=== PATIENT | male | born 1940 | race Caucasian/White ===

== ENCOUNTER 2024-02-16 13:44 | Emergency (ER) | payer MEDICARE, SELFPAY ==
[2024-02-16] VITALS (9 sets, daily range): BP systolic 124–158; BP diastolic 68–92; PULSE 59–86; RESP 16–20; TEMP 36.7–36.8; O2SAT 94–97; BMI 28.3
--- NOTE | 2024-02-16 13:45 | PC.NURSE ---
DR PICKETT AT BEDSIDE
--- NOTE | 2024-02-16 13:59 | ED_ITS ---
Discharge Plan Disposition Patient Disposition: Home, Self-Care Referrals Follow up/Referrals: Jeff Singh DO [Staff Physician] - See instructions David Salas MD [Referring] - See instructions Activity Restrictions/Add. Instructions Additional Instructions/Restrictions: At this time it was felt you are safe to be discharged home. If new or worsening symptoms please do not hesitate to return the emergency department. For pain please take Tylenol and ibuprofen as needed, please call schedule appoint with Dr. Singh as soon as you are able. Clinical Impressions Clinical Impression: Closed fracture distal radius and ulna Print Language Print Language: Beninese Discharge ED Provider: Killian Singh General Adult HPI <Megan Bay DO - Last Filed: 02/16/24 15:19> General Chief complaint: Fall Stated complaint: AO 9/2 Pain in Right wrist-fall Time Seen by Provider: 02/16/24 13:45 Mode of Arrival: Wheelchair Source of Information: Patient and Relative Limitations: No Limitations Description of Symptoms (Recalled from ER Triage Doc. by RN): pt fell at home this morning after getting tripped up, pt sister states he is very clumsy and falls a lot. pt complains of right shoulder arm and wrist pain after losing balance and falling into door frame. pt is alox4 however hard of hearing History of Present Illness HPI narrative: This patient is an 83-year-old male with a history of hypertension, CHF, CAD status post stenting presenting to the emergency department for evaluation with concern for mechanical ground-level fall. Patient's sister states that he walks with a walker on his own but is very clumsy and falls a lot. Today, he reports that he was trying to get into his closet when he slipped and fell. He states he was feeling fine prior to the fall with no dizziness or other concerns. He did not hit his head or lose consciousness. He does complain of pain in his entire right upper extremity. He states it is worse in his right shoulder and wrist. His sister notes that he recently got out of a cast for a right wrist fracture. He does not have any chest pain, back pain, numbness, tingling, abdominal pain, or other concerns. According to medication list, he takes aspirin but no blood thinners Related Data Allergies Allergy/AdvReac Type Severity Reaction Status Date / Time No Known Allergies Allergy Verified 02/16/24 14:09 PFS <Megan Bay DO - Last Filed: 02/16/24 15:19> [facility] Disclaimer: The information contained in this section may have been updated after the patient was seen, as this information can be updated by other users. Social History (Updated 02/16/24 @ 15:19 by Megan Bay DO) Smoking Status: Never smoker alcohol intake: never current occupational status: retired Travel in the last 8 weeks: None <Megan Bay DO - Last Filed: 02/16/24 15:19> ROS Obtained: Yes All systems reviewed & no additional complaints except as documented Physical Exam <Megan Bay DO - Last Filed: 02/16/24 15:19> General General appearance: alert and in no apparent distress Head Head exam: atraumatic and normocephalic Eye Eye exam: Present normal appearance, PERRL and EOMI ENT ENT exam: Present normal exam, normal oropharynx, mucous membranes moist and normal external ear exam Neck Neck exam: Present normal inspection, full ROM and trachea midline; Absent tenderness Chest Chest inspection: Present normal inspection and symmetric chest wall rise; Absent tenderness Respiratory Respiratory exam: Present normal lung sounds bilaterally; Absent respiratory distress, wheezes, stridor or accessory muscle use Cardiovascular Cardiovascular exam: Present regular rate and normal rhythm Abdominal Exam Abdominal exam: Present soft; Absent distention, tenderness or guarding Extremities Exam Extremities exam: Present full ROM, tenderness (TTP of R prox humerus and R wrist, all compartments soft, neurovascularly intact. No open wounds) and normal capillary refill; Absent edema Back Exam Back exam: Present normal inspection and full ROM; Absent tenderness Neurological Exam Neurological exam: Present alert, oriented X3 and CN II-XII intact; Absent motor sensory deficit Psychiatric Psychiatric exam: Present normal affect and normal mood Skin Skin exam: Present warm and dry Medical Decision Making <Megan Bay DO - Last Filed: 02/16/24 15:19> Medical Records Medical records reviewed: Yes I reviewed the patient's medical records. Shant Inquiry Pt receiving controlled substance: No Vital Signs: 02/16/24 13:44 02/16/24 14:00 02/16/24 14:31 Temperature 98.3 F Temperature Source Oral Pulse Rate 60 59 L Pulse Rate [Right Radial] 62 Respiratory Rate 20 16 Blood Pressure 129/75 131/75 Blood Pressure [Right Arm] 124/77 Blood Pressure Mean 93 Blood Pressure Mean [Right Arm] 92 02 Sat by Pulse Oximetry 96 95 95 Oxygen Delivery Method Room Air Room Air 02/16/24 15:31 02/16/24 16:00 02/16/24 16:31 Temperature Temperature Source Pulse Rate 59 L 59 L 61 Pulse Rate [Right Radial] Respiratory Rate 18 Blood Pressure 141/71 H 148/68 H 158/91 H Blood Pressure [Right Arm] Blood Pressure Mean 113 Blood Pressure Mean [Right Arm] 02 Sat by Pulse Oximetry 94 L 96 97 Oxygen Delivery Method Room Air Room Air 02/16/24 17:01 02/16/24 17:30 02/16/24 18:25 Temperature 98.0 F Temperature Source Pulse Rate 62 60 86 Pulse Rate [Right Radial] Respiratory Rate 18 20 20 Blood Pressure 153/76 H 157/79 H 142/92 H Blood Pressure [Right Arm] Blood Pressure Mean 101 105 Blood Pressure Mean [Right Arm] 02 Sat by Pulse Oximetry 95 96 Oxygen Delivery Method Room Air Lab Data Lab results reviewed: Yes I reviewed the patient's lab results. Lab Results 02/16/24 16:11: WBC 7.1, RBC 3.21 L, Hgb 11.1 L, Hct 34.7 L, MCV 108.0 H, MCH 34.6 H, MCHC 32.0, RDW 15.5, Plt Count 269, MPV 9.4, Neut % (Auto) 78.9, Lymph % (Auto) 14.4, [place] % (Auto) 4.3, Eos % (Auto) 2.2, Baso % (Auto) 0.2, Neut # (Auto) 5.6, Lymph # (Auto) 1.0, [place] # (Auto) 0.3, Eos # (Auto) 0.2, Baso # (Auto) 0.0, Sodium 135 L, Potassium 4.5, Chloride 100, Carbon Dioxide 30, Anion Gap 9.5, BUN 12, Creatinine 1.20, Estimated Creat Clear 46, Estimated GFR 58 L, Est GFR ( Amer) 70, Glucose 85, Calcium 8.3 L 02/16/24 16:11 02/16/24 16:11 Orders (Tests/Meds): ED MEDICATIONS Discontinued Medications Generic Name Dose Route Start Last Admin Trade Name Freq PRN Reason Stop Dose Admin Fentanyl Citrate 40 mcg 02/16/24 17:47 02/16/24 17:52 Fentanyl 100mcg/2ml Vial IV 02/16/24 17:48 40 mcg ONCE ONE Administration ORDERS Category Date Time Status CT cervical spine wo con Stat Cat Scan 02/16/24 14:[address] head/brain wo con Stat Cat Scan 02/16/24 14:03 Completed Chest XR -- portable [XR chest portable] Stat Exams 02/16/24 14:03 Completed Elbow XR right minimum 3 views [XR elbow RT min 3V] Exams 02/16/24 14:03 Completed Stat Forearm XR right 2 views [XR forearm RT 2V] Stat Exams 02/16/24 14:03 Completed Hand XR right minimum 3 views [XR hand RT min 3V] Stat Exams 02/16/24 14:03 Completed Humerus XR right [XR humerus RT] Stat Exams 02/16/24 14:03 Completed POCUS Point of Care (ER Only) Stat Exams 02/16/24 16:52 Completed Pelvis XR 1-2 views [XR pelvis 1-2V] Stat Exams 02/16/24 14:03 Completed Shoulder XR right miminum 2 views [XR shoulder RT min Exams 02/16/24 14:03 Completed 2V] Stat Wrist XR right 2 views [XR wrist RT 2V] Stat Exams 02/16/24 14:03 Completed Wrist XR right minimum 3 views [XR wrist RT min 3V] Exams 02/16/24 17:47 Completed Stat BMP [Basic Metabolic Panel] Stat Lab 02/16/24 16:11 Completed CBC w/Auto Diff [Complete Blood Count Auto Diff] Stat Lab 02/16/24 16:11 Completed Medical Decision Narrative: In summary, this patient is a 83-year-old male presenting to the Emergency Department for evaluation of right upper extremity pain after a mechanical ground-level fall. Differential diagnoses considered include but are not limited to head trauma, C-spine trauma, right upper extremity fracture, neurovascular injury. Ruling out the most morbid conditions drove assessment. It should be noted patient's history includes CAD status post stenting on aspirin, CHF, hypertension which may or may not be at goal therapy. This complicates all aspects of care by increasing patient's risk for morbidity. On exam, the patient is lying in bed in no acute distress. He is alert and conversational and at his neurologic baseline. He is well-appearing. He has tenderness palpation of his right proximal humerus and right wrist. Otherwise, he is neurovascularly intact. Will obtain CT head and C-spine given his age as well as x-rays of the chest, pelvis, and injured right upper extremity. He declines need for pain medication at this time. Patient care was signed out to the oncoming provider, Dr. Singh, pending imaging and disposition <Killian Singh MD - Last Filed: 02/16/24 18:35> Vital Signs: 02/16/24 13:44 02/16/24 14:00 02/16/24 14:31 Temperature 98.3 F Temperature Source Oral Pulse Rate 60 59 L Pulse Rate [Right Radial] 62 Respiratory Rate 20 16 Blood Pressure 129/75 131/75 Blood Pressure [Right Arm] 124/77 Blood Pressure Mean 93 Blood Pressure Mean [Right Arm] 92 02 Sat by Pulse Oximetry 96 95 95 Oxygen Delivery Method Room Air Room Air 02/16/24 15:31 02/16/24 16:00 02/16/24 16:31 Temperature Temperature Source Pulse Rate 59 L 59 L 61 Pulse Rate [Right Radial] Respiratory Rate 18 Blood Pressure 141/71 H 148/68 H 158/91 H Blood Pressure [Right Arm] Blood Pressure Mean 113 Blood Pressure Mean [Right Arm] 02 Sat by Pulse Oximetry 94 L 96 97 Oxygen Delivery Method Room Air Room Air 02/16/24 17:01 02/16/24 17:30 02/16/24 18:25 Temperature 98.0 F Temperature Source Pulse Rate 62 60 86 Pulse Rate [Right Radial] Respiratory Rate 18 20 20 Blood Pressure 153/76 H 157/79 H 142/92 H Blood Pressure [Right Arm] Blood Pressure Mean 101 105 Blood Pressure Mean [Right Arm] 02 Sat by Pulse Oximetry 95 96 Oxygen Delivery Method Room Air Lab Data Lab Results 02/16/24 16:11: WBC 7.1, RBC 3.21 L, Hgb 11.1 L, Hct 34.7 L, MCV 108.0 H, MCH 34.6 H, MCHC 32.0, RDW 15.5, Plt Count 269, MPV 9.4, Neut % (Auto) 78.9, Lymph % (Auto) 14.4, [place] % (Auto) 4.3, Eos % (Auto) 2.2, Baso % (Auto) 0.2, Neut # (Auto) 5.6, Lymph # (Auto) 1.0, [place] # (Auto) 0.3, Eos # (Auto) 0.2, Baso # (Auto) 0.0, Sodium 135 L, Potassium 4.5, Chloride 100, Carbon Dioxide 30, Anion Gap 9.5, BUN 12, Creatinine 1.20, Estimated Creat Clear 46, Estimated GFR 58 L, Est GFR ( Amer) 70, Glucose 85, Calcium 8.3 L Orders (Tests/Meds): ED MEDICATIONS Discontinued Medications Generic Name Dose Route Start Last Admin Trade Name Freq PRN Reason Stop Dose Admin Fentanyl Citrate 40 mcg 02/16/24 17:47 02/16/24 17:52 Fentanyl 100mcg/2ml Vial IV 02/16/24 17:48 40 mcg ONCE ONE Administration ORDERS Category Date Time Status CT cervical spine wo con Stat Cat Scan 02/16/24 14:[address] head/brain wo con Stat Cat Scan 02/16/24 14:03 Completed Chest XR -- portable [XR chest portable] Stat Exams 02/16/24 14:03 Completed Elbow XR right minimum 3 views [XR elbow RT min 3V] Exams 02/16/24 14:03 Completed Stat Forearm XR right 2 views [XR forearm RT 2V] Stat Exams 02/16/24 14:03 Completed Hand XR right minimum 3 views [XR hand RT min 3V] Stat Exams 02/16/24 14:03 Completed Humerus XR right [XR humerus RT] Stat Exams 02/16/24 14:03 Completed POCUS Point of Care (ER Only) Stat Exams 02/16/24 16:52 Completed Pelvis XR 1-2 views [XR pelvis 1-2V] Stat Exams 02/16/24 14:03 Completed Shoulder XR right miminum 2 views [XR shoulder RT min Exams 02/16/24 14:03 Completed 2V] Stat Wrist XR right 2 views [XR wrist RT 2V] Stat Exams 02/16/24 14:03 Completed Wrist XR right minimum 3 views [XR wrist RT min 3V] Exams 02/16/24 17:47 Completed Stat BMP [Basic Metabolic Panel] Stat Lab 02/16/24 16:11 Completed CBC w/Auto Diff [Complete Blood Count Auto Diff] Stat Lab 02/16/24 16:11 Completed ECG Data Tracing #1: Independently turbid by me rate is 58, rhythm is irregular, axis is normal, sinus arrhythmia, no ST elevation in anatomical contiguous leads, QTc 429. Medical Decision Narrative: In summary, this patient is a 83-year-old male presenting to the Emergency Department for evaluation of right upper extremity pain after a mechanical ground-level fall. Differential diagnoses considered include but are not limited to head trauma, C-spine trauma, right upper extremity fracture, neurovascular injury. Ruling out the most morbid conditions drove assessment. It should be noted patient's history includes CAD status post stenting on aspirin, CHF, hypertension which may or may not be at goal therapy. This complicates all aspects of care by increasing patient's risk for morbidity. On exam, the patient is lying in bed in no acute distress. He is alert and conversational and at his neurologic baseline. He is well-appearing. He has tenderness palpation of his right proximal humerus and right wrist. Otherwise, he is neurovascularly intact. Will obtain CT head and C-spine given his age as well as x-rays of the chest, pelvis, and injured right upper extremity. He declines need for pain medication at this time. Patient care was signed out to the oncoming provider, Dr. Singh, pending imaging and disposition Killian Singh: Upon assumption of care patient was hemodynamically stable. Plain films informally interpreted by me, distal both bone forearm fracture with dorsal angulation. Formal read shows acute on chronic both bone forearm fracture. Formal read shows acute on chronic both bone forearm fracture. No other acute traumatic pathology is identified based on other trauma survey. Patient underwent reduction with improved alignment although not full reduction after hematoma block was conducted. Patient was splinted, post capillary refill check normal. Given history of encephalopathy with opiates he will not be discharged with opiates was instructed to take Tylenol and ibuprofen scheduled and will follow-up with Dr. Singh this coming week. Patient was discharged in stable condition. Procedure: Procedure performed was ultrasound-guided hematoma block. Procedure performed by Killian Singh. Using real-time ultrasound the fracture sites of the ulna and radius were identified and using real-time ultrasound 1% lidocaine with epinephrine was infected about the fracture lines. Total cc infused was 15. Partial anesthesia achieved. Patient tolerated the procedure well. There were no immediate complications. Procedure: Procedure performed was fracture reduction. Procedure form by Killian Singh. Patient is both bone forearm fracture was reduced using finger traps and anesthesia partially achieved by hematoma block (see previous note) as well as 40 mcg of fentanyl which were given prior to procedure. Number of attempts was 2. Partial reduction achieved. Splinted with a 4 inch Ortho-Glass and sugar-tong fashion, patient tolerated the procedure well, there were no immediate complications. Post splinting capillary refill check normal. Critical Care <Megan Bay, DO - Last Filed: 02/16/24 15:19> Critical Care Time Critical Care Time: No
--- NOTE | 2024-02-16 14:03 | XR_ITS ---
PROCEDURE INFORMATION: Exam: XR Chest Exam date and time: 02/16/2024 2:44 PM Age: 83 years old Clinical indication: Injury or trauma; Fall; Blunt trauma (contusions or hematomas); Additional info: Fall >65, pain in entire rue TECHNIQUE: Imaging protocol: Radiologic exam of the chest. Views: 1 view. COMPARISON: CR XR CHEST PORTABLE 02/16/2024 2:44 PM FINDINGS: Lungs: No evidence of acute pulmonary disease or infiltrates Pleural spaces: No large effusion or pneumothorax. Heart/Mediastinum: Stable cardiac and mediastinal contours. Bones/joints: No evidence of acute osseous abnormalities within the visualized portions of the thoracic spine and ribs. Osseous structures appear appropriate for patient age. 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 IMPRESSION: No dense parenchymal consolidation, pleural effusion, or pneumothorax.
--- NOTE | 2024-02-16 14:03 | XR_ITS ---
PROCEDURE INFORMATION: Exam: XR Right Shoulder Exam date and time: 02/16/2024 2:44 PM Age: 83 years old Clinical indication: Injury or trauma; Fall; Blunt trauma (contusions or hematomas); Shoulder; Right; Additional info: Fall >65, pain in entire rue TECHNIQUE: Imaging protocol: Radiologic exam of the right shoulder. Views: 2 or more views. COMPARISON: CR XR HUMERUS RT 02/16/2024 2:44 PM FINDINGS: Bones/joints: There is an old fracture of the right humerus. No acute fractures identified. There are partially visualized degenerative changes. Soft tissues: Normal. IMPRESSION: There is an old fracture of the right humerus. No acute fractures identified.
--- NOTE | 2024-02-16 14:03 | XR_ITS ---
PROCEDURE INFORMATION: Exam: XR Right Humerus Exam date and time: 02/16/2024 2:44 PM Age: 83 years old Clinical indication: Injury or trauma; Fall; Blunt trauma (contusions or hematomas); Arm, upper; Right; Additional info: Fall >65, pain in entire rue TECHNIQUE: Imaging protocol: Radiologic exam of the right humerus. Views: 2 or more views. COMPARISON: CR XR HUMERUS RT 02/16/2024 2:44 PM FINDINGS: Bones/joints: Old mid humeral fracture without acute injury identified. Soft tissues: Normal. IMPRESSION: Old mid humeral fracture without acute injury identified.
--- NOTE | 2024-02-16 14:03 | CT_ITS ---
PROCEDURE INFORMATION: Exam: CT Cervical Spine Without Contrast Exam date and time: 02/16/2024 2:45 PM Age: 83 years old Clinical indication: Injury or trauma; Fall; Blunt trauma; Additional info: Fall >65, pain in entire rue TECHNIQUE: Imaging protocol: Computed tomography of the cervical spine without contrast. Radiation optimization: All CT scans at this facility use at least one of these dose optimization techniques: automated exposure control; mA and/or kV adjustment per patient size (includes targeted exams where dose is matched to clinical indication); or iterative reconstruction. 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 No acute cervical spine fracture is appreciated. There are severe multilevel chronic degenerative changes throughout the cervical spine. There is multilevel degenerative facet arthropathy and multilevel neural foraminal stenoses, most severe on the right at C3-C4 and C4-C5, but also severe on the left at C2-C3 and C3-C4. Chronic degenerative fusion at C4-C5. Lungs: Lung apices are normal. Soft tissues: Unremarkable. IMPRESSION: Severe multilevel chronic degenerative changes throughout the cervical spine without fracture.
--- NOTE | 2024-02-16 14:03 | XR_ITS ---
PROCEDURE INFORMATION: Exam: XR Right Forearm Exam date and time: 02/16/2024 2:44 PM Age: 83 years old Clinical indication: Injury or trauma; Fall; Blunt trauma (contusions or hematomas); Arm, lower; Right; Additional info: Fall >65, pain in entire rue TECHNIQUE: Imaging protocol: Radiologic exam of the right forearm. Views: 2 views. COMPARISON: CR XR HAND RT MIN 3V 02/16/2024 2:44 PM FINDINGS: Bones/joints: There are old distal radial and ulnar fractures with what appears to be superimposed acute fractures. No additional fracture or dislocation. No aggressive osseous lesion. Soft tissues: Soft tissues otherwise within normal limits. IMPRESSION: There are old distal radial and ulnar fractures with what appears to be superimposed acute fractures.
--- NOTE | 2024-02-16 14:03 | CT_ITS ---
PROCEDURE INFORMATION: Exam: CT Head Without Contrast Exam date and time: 02/16/2024 2:43 PM Age: 83 years old Clinical indication: Injury or trauma; Fall; Blunt trauma (contusions or hematomas); Additional info: Fall >65, pain in entire rue TECHNIQUE: Imaging protocol: Computed tomography of the head without contrast. Radiation optimization: All CT scans at this facility use at least one of these dose optimization techniques: automated exposure control; mA and/or kV adjustment per patient size (includes targeted exams where dose is matched to clinical indication); or iterative reconstruction. COMPARISON: No relevant prior studies available. FINDINGS: Brain: Diffuse cerebral atrophy and white matter microangiopathic chronic ischemia in both hemispheres. No CT evidence of acute infarct, hemorrhage, mass or mass effect. Cerebral ventricles: No ventriculomegaly. Paranasal sinuses: Visualized sinuses are unremarkable. No fluid levels. Mastoid air cells: Visualized mastoid air cells are well aerated. Bones: Unremarkable. No acute fracture. Soft tissues: Unremarkable. IMPRESSION: Senescent brain changes but no CT evidence of acute brain injury.
--- NOTE | 2024-02-16 14:03 | XR_ITS ---
PROCEDURE INFORMATION: Exam: XR Right Elbow Exam date and time: 02/16/2024 2:44 PM Age: 83 years old Clinical indication: Injury or trauma; Fall; Blunt trauma (contusions or hematomas); Elbow; Right; Additional info: Fall >65, pain in entire rue TECHNIQUE: Imaging protocol: Radiologic exam of the right elbow. Views: 3 or more views. COMPARISON: CR XR ELBOW RT MIN 3V 02/16/2024 2:44 PM FINDINGS: Bones/joints: The osseous structures appear intact with no evidence of acute fracture, dislocation, or malalignment. Joint spaces are preserved. No abnormal bone density or destructive lesions are noted. Soft tissues: Soft tissues appear unremarkable. IMPRESSION: At the time of imaging, there is no evidence for acute osseous abnormalities.
--- NOTE | 2024-02-16 14:03 | XR_ITS ---
PROCEDURE INFORMATION: Exam: XR Right Wrist Exam date and time: 02/16/2024 2:44 PM Age: 83 years old Clinical indication: Injury or trauma; Fall; Blunt trauma (contusions or hematomas); Wrist; Right; Additional info: Fall >65, pain in entire rue TECHNIQUE: Imaging protocol: Radiologic exam of the right wrist. Views: 1 or 2 views. COMPARISON: CR XR WRIST RT 2V 02/16/2024 2:44 PM FINDINGS: Bones/joints: There are old distal radial and ulnar fractures with superimposed acute posteriorly angulated injuries. There are degenerative changes of the carpus as well as the interphalangeal joints. There is a slightly distracted ulnar styloid injury. Soft tissues: Normal. IMPRESSION: There are old distal radial and ulnar fractures with superimposed acute posteriorly angulated injuries.
--- NOTE | 2024-02-16 14:03 | XR_ITS ---
PROCEDURE INFORMATION: Exam: XR Pelvis Exam date and time: 02/16/2024 2:44 PM Age: 83 years old Clinical indication: Injury or trauma; Fall; Blunt trauma (contusions or hematomas); Bilateral; Hip and pelvic region; Additional info: Fall >65 TECHNIQUE: Imaging protocol: Radiologic exam of the pelvis. Views: 1 or 2 view. COMPARISON: No relevant prior studies available. FINDINGS: Bones/joints: Status post right hip arthroplasty. There are partially visualized degenerative changes of the sacroiliac joints and lumbar spine as well as some degenerative disease of the pubic symphysis. No acute fracture or dislocation is identified. Soft tissues: Unremarkable. IMPRESSION: Degenerative disease and postsurgical change without acute injury identified.
--- NOTE | 2024-02-16 14:03 | XR_ITS ---
PROCEDURE INFORMATION: Exam: XR Right Hand Exam date and time: 02/16/2024 2:44 PM Age: 83 years old Clinical indication: Injury or trauma; Fall; Blunt trauma (contusions or hematomas); Hand; Right; Additional info: Fall >65, pain in entire rue TECHNIQUE: Imaging protocol: Radiologic exam of the right hand. Views: 3 or more views. COMPARISON: CR XR HAND RT MIN 3V 02/16/2024 2:44 PM FINDINGS: Bones/joints: Acute on chronic distal radial and ulnar fractures. There are degenerative changes of the carpus as well as the interphalangeal joints. No additional fracture or dislocation. No aggressive osseous lesion. There are pronounced degenerative changes of the 1st basal joint with joint space narrowing and productive change. Soft tissues: Soft tissues otherwise within normal limits. IMPRESSION: Acute on chronic distal radial and ulnar fractures.
--- NOTE | 2024-02-16 16:04 | ECG_ITS ---
APPROVED REPORT Exam: Resting ECG HR:58 bpm ECG Measurements Heart Rate 58 AXES DC 172 P 52 QRSd 93 QRS 74 QT 432 T 42 QTc 429 Conclusion SINUS BRADYCARDIA WITH OCCASIONAL SUPRAVENTRICULAR PREMATURE COMPLEXES INCOMPLETE RIGHT BUNDLE BRANCH BLOCK [90+ ms QRS DURATION, TERMINAL R IN V1/V2, 40+ ms S IN I/aVL/V4/V5/V6] BORDERLINE ECG Electronically signed by : CLARISSE TOMAS, 02/17/2024 18:05:39
--- NOTE | 2024-02-16 16:17 | PC.NURSE ---
called gris for recent er vist and ob records from 02/12/24
[2024-02-16 16:19] LABS: Basophils % 0.2 % (0.1-2.0); Eosinophils # 0.2 K/mm3 (0.0-0.4); Eosinophils % 2.2 % (0.1-12.0); Hematocrit 34.7 % (42.0-52.0); Hemoglobin 11.1 g/dL (14.1-18.0); Lymphocytes % 14.4 % (10-50); Mean Corpuscular Hemoglobin 34.6 pg (27.0-31.2); Mean Platelet Volume 9.4 fl (7.4-10.4); Monocytes # 0.3 K/mm3 (0.1-1.0); Monocytes % 4.3 % (1.7-9.3); Neutrophils # 5.6 K/mm3 (1.8-7.8); Neutrophils % 78.9 % (37.0-80.0); Platelet Count 269 K/mm3 (142-424); Red Blood Count 3.21 M/mm3 (4.60-6.20); Red Cell Distribution Width 15.5 % (11.5-17.5); White Blood Count 7.1 K/mm3 (4.8-10.8)
[2024-02-16 16:24] LABS: Chloride 100 mmol/L (98-107); Sodium 135 mmol/L (136-145)
[2024-02-16 16:25] LABS: Potassium 4.5 mmoL/L (3.5-5.1)
[2024-02-16 16:28] LABS: Anion Gap 9.5 mEq/L (5-15); Blood Urea Nitrogen 12 mg/dl (9-20); Calcium 8.3 mg/dl (8.4-10.2); Carbon Dioxide 30 mmol/L (22.0-30.0); Creatinine Clearance Estimated 46 mL/min (50-200); Estimated Glomerular Filt Rate 58 ml/min (>60); GFR (African American) 70 ML/MIN (>60); Glucose 85 mg/dl (74-100)
--- NOTE | 2024-02-16 17:47 | XR_ITS ---
PROCEDURE INFORMATION: Exam: XR Right Wrist Exam date and time: 02/16/2024 5:55 PM Age: 83 years old Clinical indication: Pain; Wrist; Right; Patient HX: Reduction; Additional info: Reduce TECHNIQUE: Imaging protocol: Radiologic exam of the right wrist. Views: 3 or more views. COMPARISON: CR XR WRIST RT 2V 02/16/2024 2:44 PM FINDINGS: Bones/joints: Interval reduction and cast placement of distal radial and ulnar fractures which appear slightly improved anatomic alignment. Soft tissues: Normal. IMPRESSION: Interval reduction and cast placement of distal radial and ulnar fractures which appear in slightly improved anatomic alignment.
[2024-02-16] MEDS: FENTANYL 100MCG/2ML VIAL 40 MCG IV (17:52)
== END 2024-02-16 18:28 | disposition home or self-care (01) ==
PROVIDERS: Emergency Provider Emergency Medicine; PCP Family Medicine
DX: S52.501A Unspecified fracture of the lower end of right radius, initial encounter for closed fracture (principal); S52.601A Unspecified fracture of lower end of right ulna, initial encounter for closed fracture; I11.0 Hypertensive heart disease with heart failure; I50.9 Heart failure, unspecified; I25.10 Atherosclerotic heart disease of native coronary artery without angina pectoris; W18.30XA Fall on same level, unspecified, initial encounter; Y92.9 Unspecified place or not applicable
CPT/HCPCS: 25605; 70450; 71045; 72125; 72170; 73030; 73060; 73080; 73090; 73100; 73110; 73130; 80048; 85025; 93005; 99285; J3010

== ENCOUNTER 2024-02-27 22:47 | Observation (INO) | payer MEDICARE, SELFPAY ==
[2024-02-27 22:36] VITALS: BP 111/54; PULSE 99; RESP 18; TEMP 37.2; O2SAT 92; BMI 26.6
--- NOTE | 2024-02-27 22:48 | ED_ITS ---
<Statement entered by Giovanni Little MD - 02/28/24 01:49> I was consulted by the TORRI, and we discussed the complexity of problems being addressed. I approved the treatment and management plan for this patient's care in the emergency department, thus performing a substantial portion of the medical decision making. Giovanni Little MD Discharge Plan Disposition Patient Disposition: Admitted Condition: Fair Prescriptions Prescriptions: No Action metoprolol tartrate 25 mg tablet 25 mg PO DAILY Patient Comments: take 1/2 Tablet BY MOUTH TWICE DAILY DIRECTED escitalopram oxalate 20 mg tablet 20 mg PO DAILY Patient Comments: TAKE 1 TABLET BY MOUTH ONCE DAILY montelukast 10 mg tablet 10 mg PO DAILY Patient Comments: TAKE 1 TABLET BY MOUTH ONCE DAILY AT BEDTIME triamcinolone acetonide 0.1 % ointment topical docusate sodium 100 mg capsule PO Patient Comments: TAKE 1 CAPSULE BY MOUTH ONCE DAILY acetaminophen 500 mg tablet 500 mg PO HS Patient Comments: TAKE 2 TABLETS BY MOUTH ONCE DAILY AT BEDTIME omeprazole 40 mg capsule,delayed release(DR/EC) 40 mg PO DAILY Patient Comments: TAKE 1 CAPSULE BY MOUTH ONCE DAILY fexofenadine 180 mg tablet 180 mg PO DAILY Patient Comments: TAKE 1 TABLET BY MOUTH ONCE DAILY albuterol sulfate 2.5 mg /3 mL (0.083 %) solution for nebulization 2.5 mg continuous nebulization Q6H Patient Comments: INHALE the contents of 1 nebule via NEBULIZER EVERY 6 HOURS NEEDED for shortness of air furosemide 40 mg tablet 40 mg PO DAILY Patient Comments: take 1/2 Tablet BY MOUTH ONCE DAILY aspirin 81 mg tablet,delayed release (DR/EC) 81 mg PO DAILY Patient Comments: TAKE 1 TABLET BY MOUTH ONCE DAILY lovastatin 40 mg tablet 40 mg PO DAILY Patient Comments: TAKE 1 TABLET BY MOUTH ONCE DAILY AT BEDTIME potassium chloride 20 mEq tablet,ER particles/crystals PO Patient Comments: TAKE ONE TABLET BY MOUTH ONCE DAILY isosorbide mononitrate 30 mg tablet extended release 24 hr PO Patient Comments: Take 1 tablet by mouth Every 12 Hours. levofloxacin 500 mg tablet 500 mg PO DAILY 7 Days Qty: 7 0RF Referrals Follow up/Referrals: Petar Segal [Primary Care Provider] - See instructions Clinical Impressions Clinical Impression: GLORIA (acute kidney injury), Leukopenia, Fall Print Language Print Language: Danish Discharge ED Provider: Giovanni Little General Adult HPI <Tanya Kilpela (ED), [employer] - Last Filed: 02/27/24 23:51> General Chief complaint: Fall Stated complaint: FALL Time Seen by Provider: 02/27/24 22:48 Mode of Arrival: EMS Source of Information: Patient Limitations: Physical Limitations History of Present Illness HPI narrative: This is a 84-year-old male who presents to the ED via EMS for fall prior to arrival. He complains of neck and back pain after trying to get in bed tonight and falling. Patient tells me that he lives alone and does not have help. He does arrive in an adult diaper with no pants on. EMS states that he had no air conditioning and he had no lights on. Patient does ask for something to drink. Patient denies hitting his head or losing consciousness however he does complain of neck pain. He is not on anticoagulants other than aspirin which is in his chart. Patient does have a right distal radius and ulnar fracture from February 15 of this year. It appears from chart history that he broke it on 02/15 and had it repaired on 02/23. Patient tells me that he does have frequent falls at home. Related Data Home Medications ?Medication ?Instructions ?Recorded ?Confirmed acetaminophen 500 mg tablet 500 mg PO HS 02/24/24 02/24/24 albuterol sulfate 2.5 mg/3 mL 2.5 mg continuous nebulization Q6H 02/24/24 02/24/24 (0.083 %) solution for nebulization aspirin 81 mg tablet,delayed 81 mg PO DAILY 02/24/24 02/24/24 release docusate sodium 100 mg capsule mg PO 02/24/24 02/24/24 escitalopram oxalate 20 mg tablet 20 mg PO DAILY 02/24/24 02/24/24 fexofenadine 180 mg tablet 180 mg PO DAILY 02/24/24 02/24/24 furosemide 40 mg tablet 40 mg PO DAILY 02/24/24 02/24/24 isosorbide mononitrate 30 mg mg PO 02/24/24 02/24/24 tablet,extended release 24 hr lovastatin 40 mg tablet 40 mg PO DAILY 02/24/24 02/24/24 metoprolol tartrate 25 mg tablet 25 mg PO DAILY 02/24/24 02/24/24 montelukast 10 mg tablet 10 mg PO DAILY 02/24/24 02/24/24 omeprazole 40 mg capsule,delayed 40 mg PO DAILY 02/24/24 02/24/24 release potassium chloride 20 mEq meq PO 02/24/24 02/24/24 tablet,extended release(part/cryst) triamcinolone acetonide 0.1 % topical 02/24/24 02/24/24 topical ointment Previous Rx's ?Medication ?Instructions ?Recorded levofloxacin 500 mg tablet 500 mg PO DAILY 7 days #7 tabs 02/24/24 Allergies Allergy/AdvReac Type Severity Reaction Status Date / Time No Known Allergies Allergy Verified 02/24/24 14:07 PFSH <Tanya Yan (ED), [employer] - Last Filed: 02/27/24 23:51> [facility] Disclaimer: The information contained in this section may have been updated after the patient was seen, as this information can be updated by other users. Social History Smoking Status: Unknown if ever smoked alcohol intake: never current occupational status: retired Travel in the last 8 weeks: None <Tanya Yan (ED), [employer] - Last Filed: 02/27/24 23:51> ROS Obtained: Yes Systems reviewed as appropriate & no additional complaints except as documented Constitutional Constitutional: Reports as per HPI Physical Exam <Tanya Yan (ED), [employer] - Last Filed: 02/27/24 23:51> General General appearance: alert, anxious and other (Complains of pain in back and neck) Head Head exam: atraumatic and normocephalic Eye Eye exam: Present PERRL, EOMI and conjunctival injection ENT ENT exam: Present normal exam, normal oropharynx and mucous membranes dry Neck Neck exam: Present normal inspection, full ROM and trachea midline Chest Chest inspection: Present normal inspection Respiratory Respiratory exam: Present normal lung sounds bilaterally Cardiovascular Cardiovascular exam: Present regular rate, normal rhythm, normal heart sounds, +S1 and +S2 Abdominal Exam Abdominal exam: Present normal bowel sounds Extremities Exam Extremities exam: Present normal capillary refill and other (Patient has a distal radius and ulnar fracture that is in sling on right arm moving all other extremities) Back Exam Back exam: Present full ROM and tenderness (Tenderness along spine) Neurological Exam Neurological exam: Present alert Skin Skin exam: Present warm, dry and intact Medical Decision Making <Tanya Yan (ED), [employer] - Last Filed: 02/27/24 23:51> Shant Inquiry Pt receiving controlled substance: No Shant was queried for this patient: No Vital Signs: 02/27/24 22:36 02/27/24 23:00 02/27/24 23:39 Temperature 99.0 F Temperature Source Oral Pulse Rate 90 82 Pulse Rate [Left Radial] 99 H Respiratory Rate 18 Blood Pressure 130/72 127/39 L Blood Pressure [Right Arm] 111/54 L Blood Pressure Mean [Right Arm] 73 Blood Pressure Source [Right Arm] Automatic Cuff Blood Pressure Position [Right Arm] Sitting 02 Sat by Pulse Oximetry 92 L 92 L 88 L Oxygen Delivery Method Room Air 02/28/24 00:30 02/28/24 01:00 02/28/24 01:07 Temperature Temperature Source Pulse Rate 87 81 90 Pulse Rate [Left Radial] Respiratory Rate Blood Pressure 112/70 112/70 Blood Pressure [Right Arm] Blood Pressure Mean [Right Arm] Blood Pressure Source [Right Arm] Blood Pressure Position [Right Arm] 02 Sat by Pulse Oximetry 90 L 99 Oxygen Delivery Method 02/28/24 01:07 Temperature Temperature Source Pulse Rate 87 Pulse Rate [Left Radial] Respiratory Rate Blood Pressure Blood Pressure [Right Arm] Blood Pressure Mean [Right Arm] Blood Pressure Source [Right Arm] Blood Pressure Position [Right Arm] 02 Sat by Pulse Oximetry Oxygen Delivery Method Lab Data Lab Results 02/27/24 23:11: WBC 2.9 L, RBC 4.73, Hgb 15.8, Hct 52.3 H, MCV 110.6 H, MCH 33.3 H, MCHC 30.1 L, RDW 15.5, Plt Count 150, MPV 7.7, Neut % (Auto) 78.6, Lymph % (Auto) 13.6, [place] % (Auto) 5.9, Eos % (Auto) 1.4, Baso % (Auto) 0.5, Neut # (Auto) 2.3, Lymph # (Auto) 0.4 L, [place] # (Auto) 0.2, Eos # (Auto) 0.0, Baso # (Auto) 0.0, Sodium 138, Potassium 3.8, Chloride 103, Carbon Dioxide 29, Anion Gap 9.8, BUN 17, Creatinine 1.90 H, Estimated Creat Clear 31, Estimated GFR 34 L , Est GFR ( Amer) 41 L, Glucose 102 H, Calcium 8.9, Total Bilirubin 0.6, AST 29, ALT 15, Alkaline Phosphatase 104, Total Protein 7.9, Albumin 3.9, G lobulin 4.0 H, Albumin/Globulin Ratio 1.0 L, Lipase 53 02/27/24 23:11 02/27/24 23:11 Orders (Tests/Meds): ED MEDICATIONS Discontinued Medications Generic Name Dose Route Start Last Admin Trade Name Freq PRN Reason Stop Dose Admin Albuterol/Ipratropium 3 ml 02/28/24 00:43 02/28/24 01:00 Ipratropium/Albuterol 3 Ml Neb IH 02/28/24 00:44 3 ml ONCE ONE Administration ORDERS Category Date Time Status CT bony pelvis Stat Cat Scan 02/27/24 22:[address] cervical spine wo con Stat Cat Scan 02/27/24 22:[address] head/brain wo con Stat Cat Scan 02/27/24 22:[address] lumbar spine wo con Stat Cat Scan 02/27/24 22:[address] thoracic spine wo con Stat Cat Scan 02/27/24 22:49 Completed CBC [Complete Blood Count Auto Diff] Stat Lab 02/27/24 23:11 Completed Comprehensive Metabolic Panel Stat Lab 02/27/24 23:11 Completed Lipase Stat Lab 02/27/24 23:11 Completed Medical Decision Narrative: Insert review patient is a 84-year-old male presenting to the emergency department for evaluation of fall while trying to get in bed at home. Patient is [hemodynamically stable and nontoxic-appearing upon arrival, afebrile]. Differential diagnosis includes fracture fractures from fall, concern for social determinants, weakness, among others. Workup will be conducted with [hematologic labs, CT scans of cervical spine, lumbar and thoracic spines as well as head. Initial inventions include Tylenol for pain. Patient scans are not back at this time. Will leave to Dr. Little for results and admission <Giovanni Little MD - Last Filed: 02/28/24 01:49> Vital Signs: 02/27/24 22:36 02/27/24 23:00 02/27/24 23:39 Temperature 99.0 F Temperature Source Oral Pulse Rate 90 82 Pulse Rate [Left Radial] 99 H Respiratory Rate 18 Blood Pressure 130/72 127/39 L Blood Pressure [Right Arm] 111/54 L Blood Pressure Mean [Right Arm] 73 Blood Pressure Source [Right Arm] Automatic Cuff Blood Pressure Position [Right Arm] Sitting 02 Sat by Pulse Oximetry 92 L 92 L 88 L Oxygen Delivery Method Room Air 02/28/24 00:30 02/28/24 01:00 02/28/24 01:07 Temperature Temperature Source Pulse Rate 87 81 90 Pulse Rate [Left Radial] Respiratory Rate Blood Pressure 112/70 112/70 Blood Pressure [Right Arm] Blood Pressure Mean [Right Arm] Blood Pressure Source [Right Arm] Blood Pressure Position [Right Arm] 02 Sat by Pulse Oximetry 90 L 99 Oxygen Delivery Method 02/28/24 01:07 Temperature Temperature Source Pulse Rate 87 Pulse Rate [Left Radial] Respiratory Rate Blood Pressure Blood Pressure [Right Arm] Blood Pressure Mean [Right Arm] Blood Pressure Source [Right Arm] Blood Pressure Position [Right Arm] 02 Sat by Pulse Oximetry Oxygen Delivery Method Lab Data Lab Results 02/27/24 23:11: WBC 2.9 L, RBC 4.73, Hgb 15.8, Hct 52.3 H, MCV 110.6 H, MCH 33.3 H, MCHC 30.1 L, RDW 15.5, Plt Count 150, MPV 7.7, Neut % (Auto) 78.6, Lymph % (Auto) 13.6, [place] % (Auto) 5.9, Eos % (Auto) 1.4, Baso % (Auto) 0.5, Neut # (Auto) 2.3, Lymph # (Auto) 0.4 L, [place] # (Auto) 0.2, Eos # (Auto) 0.0, Baso # (Auto) 0.0, Sodium 138, Potassium 3.8, Chloride 103, Carbon Dioxide 29, Anion Gap 9.8, BUN 17, Creatinine 1.90 H, Estimated Creat Clear 31, Estimated GFR 34 L , Est GFR ( Amer) 41 L, Glucose 102 H, Calcium 8.9, Total Bilirubin 0.6, AST 29, ALT 15, Alkaline Phosphatase 104, Total Protein 7.9, Albumin 3.9, G lobulin 4.0 H, Albumin/Globulin Ratio 1.0 L, Lipase 53 Orders (Tests/Meds): ED MEDICATIONS Discontinued Medications Generic Name Dose Route Start Last Admin Trade Name Freq PRN Reason Stop Dose Admin Albuterol/Ipratropium 3 ml 02/28/24 00:43 02/28/24 01:00 Ipratropium/Albuterol 3 Ml Neb 02/28/24 00:44 3 ml ONCE ONE Administration ORDERS Category Date Time Status CT bony pelvis Stat Cat Scan 02/27/24 22:[address] cervical spine wo con Stat Cat Scan 02/27/24 22:[address] head/brain wo con Stat Cat Scan 02/27/24 22:[address] lumbar spine wo con Stat Cat Scan 02/27/24 22:[address] thoracic spine wo con Stat Cat Scan 02/27/24 22:49 Completed CBC [Complete Blood Count Auto Diff] Stat Lab 02/27/24 23:11 Completed Comprehensive Metabolic Panel Stat Lab 02/27/24 23:11 Completed Lipase Stat Lab 02/27/24 23:11 Completed Medical Decision Narrative: Insert review patient is a 84-year-old male presenting to the emergency department for evaluation of fall while trying to get in bed at home. Patient is [hemodynamically stable and nontoxic-appearing upon arrival, afebrile]. Differential diagnosis includes fracture fractures from fall, concern for social determinants, weakness, among others. Workup will be conducted with [hematologic labs, CT scans of cervical spine, lumbar and thoracic spines as well as head. Initial inventions include Tylenol for pain. Patient scans are not back at this time. Will leave to Dr. Little for results and admission Little: Upon my assumption of care patient continues to be stable. He did have mild wheezing and reportedly takes breathing treatments at home so DuoNeb was administered. Patient was complaining of feeling the need to urinate but only had 61 mL in the bladder on bladder scan. He does have a history of difficulty urinating however with small volume in the bladder at this time, will not cath and will see if patient is able to void spontaneously later. CT imaging was personally interpreted, and CT cervical spine there are significant degenerative changes, and CT head no acute intracranial abnormality such as bleed or skull fracture. See radiology reads for final interpretations. Radiology reads were reviewed, patient has multiple areas of degenerative changes. Patient does not have any acute traumatic injuries. Findings of the left femoral head are concerning for avascular necrosis but patient is not complaining of acute pain and joint appears stable on imaging. Multiple old rib fractures. Patient has GLORIA as well as multiple recent falls, obvious findings of degenerative changes, and clearly not able to safely care for himself at home. At this time he requires admission. Patient and family are agreeable to this. I discussed this case with the hospitalist including patient's findings on imaging. Patient accepted for admission. Critical Care <Tanya Yan (ED), [employer] - Last Filed: 02/27/24 23:51> Critical Care Time Critical Care Time: No
--- NOTE | 2024-02-27 22:49 | CT_ITS ---
PROCEDURE INFORMATION: Exam: CT Thoracic Spine Without Contrast Exam date and time: 02/27/2024 11:29 PM Age: 84 years old Clinical indication: Injury or trauma; Fall; Other: Pain TECHNIQUE: Imaging protocol: Computed tomography of the thoracic spine without contrast. Radiation optimization: All CT scans at this facility use at least one of these dose optimization techniques: automated exposure control; mA and/or kV adjustment per patient size (includes targeted exams where dose is matched to clinical indication); or iterative reconstruction. COMPARISON: CT THORACIC SPINE WO CON 02/27/2024 11:29 PM FINDINGS: Bones/joints: Questionable acute versus subacute fracture medial left 12th rib at the level of the costovertebral junction noted on axial image 113. Small portion of an acute appearing fracture involving the posterior left 11th rib is noted on axial image 124. There is a healing fracture of the posterior left 9th rib. Numerous old bilateral rib fractures are evident. There is a scoliosis of the upper thoracic spine convex left. There is straightening of the spine. No acute thoracic fracture. Moderate degenerative disc disease at T10-11 and severe degenerative disc disease at T12-L1. Soft tissues: Unremarkable. Lungs: Left lower lobe calcified granuloma. No pleural effusion or pneumothorax. Other findings: [id number] hiatal hernia. IMPRESSION: 1. Suspected acute fracture posterior left 11th rib incompletely included on this examination. 2. Acute versus subacute fracture medial left 12th rib. 3. Healing fracture posterior left 9th rib. 4. Other old bilateral rib fractures otherwise.
--- NOTE | 2024-02-27 22:49 | CT_ITS ---
PROCEDURE INFORMATION: Exam: CT Pelvis Without Contrast, Skeleton Exam date and time: 02/27/2024 11:35 PM Age: 84 years old Clinical indication: Injury or trauma; Fall; Other: Pain TECHNIQUE: Imaging protocol: Computed tomography of the pelvis without contrast. Exam focused on the skeleton. Radiation optimization: All CT scans at this facility use at least one of these dose optimization techniques: automated exposure control; mA and/or kV adjustment per patient size (includes targeted exams where dose is matched to clinical indication); or iterative reconstruction. COMPARISON: CR XR PELVIS 1-2V 02/16/2024 2:44 PM FINDINGS: Bones/joints: There are comminuted fractures of the distal right radius and ulna with a cast noted. A right total hip prosthesis is noted in anatomic alignment. There are moderate to severe degenerative changes of the left hip with findings consistent with AVN of the femoral head. No acute fracture of the pelvis or proximal femurs. Soft tissues: Unremarkable. IMPRESSION: 1. No acute fracture of the pelvis or proximal femurs. 2. 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
--- NOTE | 2024-02-27 22:49 | CT_ITS ---
PROCEDURE INFORMATION: Exam: CT Lumbar Spine Without Contrast Exam date and time: 02/27/2024 11:32 PM Age: 84 years old Clinical indication: Injury or trauma; Fall; Other: Pain TECHNIQUE: Imaging protocol: Computed tomography of the lumbar spine without contrast. Radiation optimization: All CT scans at this facility use at least one of these dose optimization techniques: automated exposure control; mA and/or kV adjustment per patient size (includes targeted exams where dose is matched to clinical indication); or iterative reconstruction. COMPARISON: CT THORACIC SPINE WO CON 02/27/2024 11:29 PM FINDINGS: Bones/joints: There are moderate compression deformities of L1 and L3 which appear old. No acute fracture is evident. There is an old fracture of the right L1 transverse process. There is mild kyphosis at the T12-L1 level secondary to the compression deformity. There is slight retrolisthesis at L1-L2. There is a scoliosis convex left centered at L3. There is slight anterolisthesis at L5-S1 secondary to bilateral L5 pars defects. Significant degenerative disc disease is noted from T12 through L3 with moderate degenerative disc disease at L5-S1. No significant disc bulge or herniation. Mild central canal stenosis at T12-L1 secondary to the kyphosis. Significant bilateral foraminal stenosis at L5-S1 left greater than right. Soft tissues: Unremarkable. IMPRESSION: No acute fracture. Significant degenerative changes as noted. Old-appearing compression deformities of L1 and L3.
--- NOTE | 2024-02-27 22:49 | CT_ITS ---
PROCEDURE INFORMATION: Exam: CT Cervical Spine Without Contrast Exam date and time: 02/27/2024 11:27 PM Age: 84 years old Clinical indication: Injury or trauma; Fall; Other: Pain TECHNIQUE: Imaging protocol: Computed tomography of the cervical spine without contrast. Radiation optimization: All CT scans at this facility use at least one of these dose optimization techniques: automated exposure control; mA and/or kV adjustment per patient size (includes targeted exams where dose is matched to clinical indication); or iterative reconstruction. COMPARISON: CT CERVICAL SPINE WO CON 02/16/2024 2:45 PM FINDINGS: Bones: No acute fracture. There is an S shaped scoliosis of the cervicothoracic spine the curve convex right in the mid cervical level. There is straightening of the spine with loss of the lordotic curve. There is subtle anterolisthesis at C2-C3. Severe degenerative disc disease is present from C3 through C7. Severe diffuse left-sided facet arthropathy is present secondary to the scoliosis. Disc level osteophytes at C4-C5 and C5-C6 encroach on the canal causing at least mild stenosis. No significant disc bulge or herniation. There is significant bilateral foraminal stenosis from C2-C3 through C7-T1 more prominent on the left. Lungs: Lung apices are normal. Soft tissues: Unremarkable. IMPRESSION: No acute cervical spine fracture. Significant diffuse spondylosis as noted.
--- NOTE | 2024-02-27 22:49 | CT_ITS ---
PROCEDURE INFORMATION: Exam: CT Head Without Contrast Exam date and time: 02/27/2024 11:24 PM Age: 84 years old Clinical indication: Injury or trauma; Fall; Other: Pain TECHNIQUE: Imaging protocol: Computed tomography of the head without contrast. Radiation optimization: All CT scans at this facility use at least one of these dose optimization techniques: automated exposure control; mA and/or kV adjustment per patient size (includes targeted exams where dose is matched to clinical indication); or iterative reconstruction. COMPARISON: CT HEAD/BRAIN WO CON 02/27/2024 11:24 PM FINDINGS: Brain: There is age related atrophy. No hemorrhage. There is [id number] periventricular white matter hypodensity consistent with chronic small vessel disease. No mass effect. Cerebral ventricles: Ventricular enlargement secondary to parenchymal atrophy. Paranasal sinuses: Visualized sinuses are unremarkable. No fluid levels. Mastoid air cells: Visualized mastoid air cells are well aerated. Orbital cavities: There has been bilateral lens extraction. Bones: Severe facet arthropathy on the left at C2-C3. Soft tissues: Unremarkable. IMPRESSION: No acute intracranial abnormality.
[2024-02-27 23:00] VITALS: BP 130/72; PULSE 90; O2SAT 92
[2024-02-27 23:35] LABS: Basophils % 0.5 % (0.1-2.0); Eosinophils % 1.4 % (0.1-12.0); Hematocrit 52.3 % (42.0-52.0); Hemoglobin 15.8 g/dL (14.1-18.0); Lymphocytes # 0.4 K/mm3 (0.7-4.5); Lymphocytes % 13.6 % (10-50); Mean Corpuscular HGB Conc 30.1 g/dL (31.8-35.4); Mean Corpuscular Hemoglobin 33.3 pg (27.0-31.2); Mean Corpuscular Volume 110.6 fl (80-94); Mean Platelet Volume 7.7 fl (7.4-10.4); Monocytes # 0.2 K/mm3 (0.1-1.0); Monocytes % 5.9 % (1.7-9.3); Neutrophils # 2.3 K/mm3 (1.8-7.8); Neutrophils % 78.6 % (37.0-80.0); Platelet Count 150 K/mm3 (142-424); Red Blood Count 4.73 M/mm3 (4.60-6.20); Red Cell Distribution Width 15.5 % (11.5-17.5); White Blood Count 2.9 K/mm3 (4.8-10.8)
[2024-02-27 23:39] VITALS: BP 127/39; PULSE 82; O2SAT 88
[2024-02-27 23:41] LABS: Albumin Level 3.9 g/dl (3.5-5.0); Chloride 103 mmol/L (98-107); Potassium 3.8 mmoL/L (3.5-5.1); Sodium 138 mmol/L (136-145)
[2024-02-27 23:44] LABS: Alanine Aminotransferase 15 U/L (12-78); Alkaline Phosphatase 104 U/L (38-126); Anion Gap 9.8 mEq/L (5-15); Aspartate Amino Transferase 29 U/L (17-59); Bilirubin,Total 0.6 mg/dl (0.2-1.3); Blood Urea Nitrogen 17 mg/dl (9-20); Carbon Dioxide 29 mmol/L (22.0-30.0); Creatinine Clearance Estimated 31 mL/min (50-200); Estimated Glomerular Filt Rate 34 ml/min (>60); GFR (African American) 41 ML/MIN (>60); Lipase 53 U/L (23-300); Total Protein,Serum 7.9 g/dl (6.3-8.2)
[2024-02-27 23:45] LABS: Calcium 8.9 mg/dl (8.4-10.2); Glucose 102 mg/dl (74-100)
[2024-02-28] VITALS (11 sets, daily range): BP systolic 112–143; BP diastolic 61–74; PULSE 81–98; RESP 16–18; TEMP 36.8–37.1; O2SAT 90–100; BMI 26.1
--- NOTE | 2024-02-28 00:19 | PC.NURSE ---
BLADDER SCAN DONE. 61ML FOUND. NOTIFEID
[2024-02-28] MEDS: IPRATROPIUM/ALBUTEROL 3 ML NEB IH (01:00)
[2024-02-28 02:19] LABS: Ethyl Alcohol < 10 mg/dl (0-10)
--- NOTE | 2024-02-28 04:15 | EXP.HP ---
History of Present Illness *Admission Date: 02/28/24 *Reason for visit:: Deficits self-care falling with fractures *History of present illness: Patient has lived by himself near his sister for the last 3 years with declining health, over the last year he has fallen 10 times with several fractures, they were he had fallen at home they were unable to get him by the phone the police had to enter the house, but the sister arrived just before then with the summers to unlock the door and he was brought to the emergency room. The sister had been looking for long-term care as he is no longer able to live by himself, he did come in by the ambulance only wearing an adult diaper no pant. Patient has a long-term history of difficulty with speech, he is hard to understand at times but actually knows what he is saying his sister knowing him well understands everything he is saying. Have talked with the patient he knows he needs long-term care also has a living will at home and is a DO NOT RESUSCITATE. After consulting with the ER physician and examining the data I do agree that this patient needs to be admitted, he cannot safely stay by himself [facility] Disclaimer: The information contained in this section may have been updated after the patient was seen, as this information can be updated by other users. Medical History (Updated 02/28/24 @ 05:45 by Madonna Darling RN) Fracture of radial shaft, with ulna, right, closed Depression CAD (coronary artery disease) CHF (congestive heart failure) COPD (chronic obstructive pulmonary disease) Constipation GERD (gastroesophageal reflux disease) Seasonal allergies HLD (hyperlipidemia) HTN (hypertension) Surgical History (Updated 02/28/24 @ 05:45 by Madonna Darling RN) Hip joint replacement status History of surgery on arm Social History Smoking Status: Unknown if ever smoked alcohol intake: never current occupational status: retired Travel in the last 8 weeks: None Review of Systems Review of Systems Review of systems:: pertinent systems reviewed and negative unless documented below Review of systems (narrative): Patient's sister and her is in the room while I am examining the patient, patient is alert able to ask me questions had me reposition his bed and pillow for comfort. He is friendly and likes to laugh and tries to tell jokes with. Do not understand his underlying condition of mental health with difficulty with squinting also noting difficulty with speech. Per the sister this has been a lifelong problem. Constitutional Constitutional: Reports as per HPI and Reports frequent falls Comments: Patient has some history of choking per the patient and the sister with some foods, patient noted that he likes eggs parsons and toast for breakfast and Pepsi. He really likes Pepsi Eyes Eyes: Reports as per HPI ENT Ears, Nose, Mouth, and Throat: Reports as per HPI Comments: Wears full dentures *Cardiovascular Cardiovascular: Reports as per HPI *Respiratory Respiratory: Reports as per HPI *Gastrointestinal Gastrointestinal: Reports as per HPI *Genitourinary Comments: Uses adult diapers *Musculoskeletal Musculoskeletal: Reports abnormal gait and Reports myalgias Comments: Sling and cast to right forearm Integumentary/Breasts Skin/Breast: Reports as per HPI *Neurologic Neurologic: Reports abnormal gait and Reports frequent falls Psychiatric Psychiatric: Reports as per HPI Comments: Patient has a behavioral and learning deficit. This has affected his speech at times he speaks clearly other times it is very difficult to understand him Endocrine Endocrine: Reports as per HPI Hematologic/Lymphatic Hematologic/Lymphatic: Reports as per HPI Allergic/Immunologic Allergic/Immunologic: Reports as per HPI Meds Home Medications and Allergies Home Medications ?Medication ?Instructions ?Recorded ?Confirmed ?Type acetaminophen 500 mg tablet 1,000 mg PO HS 02/24/24 02/28/24 History albuterol sulfate 2.5 mg/3 mL 2.5 mg inhalation Q6HP PRN Wheezing 02/24/24 02/28/24 History (0.083 %) solution for nebulization aspirin 81 mg tablet,delayed 81 mg PO DAILY 02/24/24 02/28/24 History release docusate sodium 100 mg capsule 100 mg PO DAILY 02/24/24 02/28/24 History escitalopram oxalate 20 mg tablet 20 mg PO DAILY 02/24/24 02/28/24 History fexofenadine 180 mg tablet 180 mg PO DAILY 02/24/24 02/28/24 History furosemide 40 mg tablet 20 mg PO DAILY 02/24/24 02/28/24 History isosorbide mononitrate 30 mg 30 mg PO BID 02/24/24 02/28/24 History tablet,extended release 24 hr levofloxacin 500 mg tablet 500 mg PO DAILY 7 days #7 tabs 02/24/24 02/28/24 Rx lovastatin 40 mg tablet 40 mg PO HS 02/24/24 02/28/24 History metoprolol tartrate 25 mg tablet 12.5 mg PO BID 02/24/24 02/28/24 History montelukast 10 mg tablet 10 mg PO HS 02/24/24 02/28/24 History omeprazole 40 mg capsule,delayed 40 mg PO DAILY 02/24/24 02/28/24 History release potassium chloride 20 mEq 20 meq PO DAILY 02/24/24 02/28/24 History tablet,extended release(part/cryst) triamcinolone acetonide 0.1 % 0.1 applic topical BIDP PRN Rash 02/24/24 02/28/24 History topical ointment New Prescriptions to Start Prescriptions: Allergies Allergy/AdvReac Type Severity Reaction Status Date / Time No Known Allergies Allergy Verified 02/24/24 14:07 Exam Data for Last 24 hours Vital signs and Labs for Last 24 Hours: Temp Pulse Resp BP Pulse Ox O2 Del Method 98.2 F 82 16 121/61 100 Room Air 02/28/24 02:41 02/28/24 02:41 02/28/24 02:41 02/28/24 02:41 02/28/24 02:20 02/28/24 02:20 Laboratory Results - last 24 hr 02/27/24 23:11: WBC 2.9 L, RBC 4.73, Hgb 15.8, Hct 52.3 H, MCV 110.6 H, MCH 33.3 H, MCHC 30.1 L, RDW 15.5, Plt Count 150, MPV 7.7, Neut % (Auto) 78.6, Lymph % (Auto) 13.6, [place] % (Auto) 5.9, Eos % (Auto) 1.4, Baso % (Auto) 0.5, Neut # (Auto) 2.3, Lymph # (Auto) 0.4 L, [place] # (Auto) 0.2, Eos # (Auto) 0.0, Baso # (Auto) 0.0, Sodium 138, Potassium 3.8, Chloride 103, Carbon Dioxide 29, Anion Gap 9.8, BUN 17, Creatinine 1.90 H, Estimated Creat Clear 31, Estimated GFR 34 L, Est GFR ( Amer) 41 L, Glucose 102 H, Calcium 8.9, Total Bilirubin 0.6, AST 29, ALT 15, Alkaline Phosphatase 104, Total Protein 7.9, Albumin 3.9, Globulin 4.0 H, Albumin/Globulin Ratio 1.0 L, Lipase 53, Plasma/Serum Alcohol < 10 I & O for Last 24 hours: Intake & Output 02/25/24 02/26/24 02/27/24 02/28/24 23:59 23:59 23:59 23:59 Weight 72.575 kg 71.078 kg Radiology Reports for the Last 24 Hours: Has several fractured ribs new and old also fracture to the right distal forearm. Noting left femoral head severe degeneration versus AVN Constitutional Constitutional: no acute distress and chronically ill appearing *Routine HEENT Exam Head: Present normocephalic and atraumatic Eye: Present EOMI, PERRL and normal accommodation ENT: Present mucous membranes moist *Routine Neck Exam Neck: Present supple and full ROM Routine Chest/Breast/Axilla Exam Chest wall: Present tenderness (Tenderness to left rib cage to palpation) *Routine Respiratory Exam Respiratory: Present normal respiratory effort and able to speak in complete sentences *Routine Cardiovascular Exam Cardiovascular: Present RRR and bradycardia *Routine Abdominal Exam Abdominal: Present soft and normoactive bowel sounds Comments: No tenderness found in abdomen *Routine Rectal Exam Rectal:: deferred *Routine Genitalia Exam Genitalia:: deferred *Routine Extremities Exam Comments: Sling to right arm with cast to forearm, able to move all fingers 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 No pain noted in the left hip to palpation or movement Routine Back/Spine/Pelvis Exam Back/Spine: Present full ROM and CVA tenderness Comments: Did not stand patient during exam but he is able to move in the bed well help may reposition him and bring the head of the bed up *Routine Skin Exam Skin: Present intact Comments: Some bruising noted to the right hand around the cast *Routine Neurological Exam Neurological: Present alert, oriented X3, CN II-XII intact, motor deficit, normal tone, vision grossly intact and hearing grossly intact Comments: As noted the patient is able to talk but at times it is difficult, to 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 Aging process related to having increased falls and decreased ability to care for self 2. Fracture of right arm was to see Dr. Singh on Friday 3. Fractured ribs 4. Left hip femoral head degeneration 5. GLORIA creatinine increased compared to past Imaging and Cardiology Chest x-ray: Status: image reviewed by me Additional comments: Showed fractures either new or old left rib cage 3 of them with apparent fractures, left hip showing degeneration of the left femoral head versus AVN. Assessment and Plan *Assessment and plan (1) Fall: Status: Acute Category: Medical Code(s): W19.XXXA - Unspecified fall, initial encounter (2) Leukopenia: Status: Acute Category: Medical Code(s): D72.819 - Decreased white blood cell count, unspecified (3) GLORIA (acute kidney injury): Status: Acute Category: Medical Code(s): N17.9 - Acute kidney failure, unspecified (4) Closed fracture distal radius and ulna: Status: Acute Category: Medical Code(s): S52.509A - Unspecified fracture of the lower end of unspecified radius, initial encounter for closed fracture; S52.609A - Unspecified fracture of lower end of unspecified ulna, initial encounter for closed fracture (5) Rib fracture: Status: Acute Category: Medical Code(s): S22.39XA - Fracture of one rib, unspecified side, initial encounter for closed fracture (6) Avascular necrosis of left femoral head: Status: Acute Category: Medical Code(s): M87.052 - Idiopathic aseptic necrosis of left femur Plan Patient falling at home, inability to care for self. Has sustained multiple fractures. Has mild GLORIA. Discussed case with ER, request admission for therapy eval and safe dispo planning. Patient not safe to discharge home at this time. Medicine agreed to admit for further management. Problems addressed as follows: 1. Falling decreased self-care. The patient is no longer able to live by himself. Will probably need long-term care placement will do physical therapy OT with case management to evaluate needs for discharge. 2. Leukopenia mild to be of followed and evaluated as needed 3. Rib fracture possible a necrosis of left femoral head versus severe degeneration and several rib fractures were old versus new, plan will have Dr. Singh consulted as the patient was going to see him on Friday for the wrist in his office 4. Acute kidney injury will evaluate I&O's see if this is dehydration versus a sudden decline in kidney function, or something related to his falls we will evaluate if there was an increase in myoglobin or some such injury to the kidneys as needed to evaluate the kidney function here in the future. CBC, CMP, magnesium ordered for the morning. Baseline creatinine 1.2, increased to 1.9 on admission. Continues to make urine. Rounded on patient after nurse practitioner. Personally examined and interviewed patient. Agree with exam findings and care plan as documented. Therapy evaluating. Will discuss case with case management to determine appropriateness of dispo to rehab versus home with home health.
[2024-02-28] MEDS: PANTOPRAZOLE 40MG TABLET 40 MG PO (09:14)
[2024-02-28] MEDS: DOCUSATE SODIUM 100 MG CAPSULE PO (09:15)
[2024-02-28] MEDS: ENOXAPARIN 40MG/0.4ML SYRINGE 40 MG SQ (09:15)
[2024-02-28] MEDS: ACETAMINOPHEN 325MG TAB 650 MG PO (09:17)
--- NOTE | 2024-02-28 12:37 | HMH.PTEV ---
Physical Therapy Evaluation Rehab PT IP Evaluation Start: 02/28/24 02:53 Freq: ONCE Status: Active Protocol: Document 02/28/24 12:15 PDESEROUX (Rec: 02/28/24 12:37 [email or web address] [id number]) Subjective/History History History Pt. is a 84 year old male who presents to [facility] Inpatient secondary to having a fall at home. Pt. reports turning too quick and losing his balance resulting in most recent fall. Pt. reports he needed assistance to stand back up secondary to c/o LUE wrist P!, but also secondary to overall generalized weakness. pt. vocalizes having a chronic history of multiple falls in the last year. Pt. reports he lives alone in a one story home, ambulates w/ a rollator in his home environment. Pt. reports every Friday and Friday he has someone that comes in that assists in his ADLs including bathing, dressing, and washing his hair. Pt. reports also owning a shower chair and W/C that he uses. Pt. reports minimal ambulation, 2-3x/day to bathroom and bedroom, daily w/ rollator. PMH includes RUE distal radioulnar reconstruction and history of chronic fractures secondary to previous falls. Subjective Subjective Pt. was asleep in recliner upon entry into pt.'s hospital room after being given consent from pt. to enter. Pt. agreeable to participate in Physical Therapy Inpatient initial eval. this date. Pt. c /o RUE wrist P! secondary to re-irritation w/ most recent fall at home. Pt. c/o 6/10 RUE wrist P! and difficulty w/ utilizing FWW w/ ambulation this date. New diagnosis of cancer in past 12 No months? Rehab PT IP Eval Objective Appearance Patient Behavior Appropriate,Cooperative Patient Orientation Person,Place,Birthday Difficulty following instructions none Speech Pattern Appropriate,Stuttering, Difficulty Finding Words,Poor Articulation Ambulation Patient Able to Ambulate Yes Ambulation Observation IP General Gait Pattern Observation Narrow Based Gait,Shuffling Step Ambulation Distance (feet) 10 Ambulation Assistive Device Rolling Walker Ambulation Ability Minimal x 1 (25% assist) Balance Ability to Arise Able, uses arms to help Sitting Balance Steady, safe Standing Balance Steady, wide stance Dynamic Sitting Balance Ability Good Dynamic Standing Balance Ability Good Transfers Chair Transfer Ability Moderate x 1 (50% assist) Sit to Stand Bed Transfer Ability Moderate x 1 (50% assist) Sit to Stand Chair Transfer Ability Moderate x 1 (50% assist) Pain Shoulder Pain Intensity 6 ROM LUE PT ROM Status WFL RUE PT ROM Status ABN Abnormal ROM Comment d/t RUE wrist P! RLE PT ROM Status WFL LLE PT ROM Status WFL MMT RUE PT MMT ABN LUE PT MMT WFL RLE PT MMT WFL LLE PT MMT WFL Rehab PT IP prob,goals,plan Problems Date of Evaluation: 02/28/24 PT IP Problems Transfers,Gait,Balance,Self care,Safety Rehab Potential Rehab Potential Good Equipment Needs Assistive Devices Rolling / Wheeled Walker Plan PT Intervention Plan Transfers,Gait,Balance,Self care,Safety,Therapeutic Exercise PT Plan Frequency BID Duration LOS Discharge Goals Bed Transfer Ability Contact Guard/Hand Hold Sit to Stand Chair Transfer Ability Minimal x 1 (25% assist) Ambulation Assistive Device Rolling Walker Ambulation Distance (feet) 15 Discharge Plan PT Discharge Plan Upon discharge from [facility], once deemed medically stable per MD , pt. most appropriate for long-term care secondary to current living/home environment and increased difficulty, d/t RUE wrist P! from recent fall, w/ self- ambulation using AD at home to reduce fall risk. Pt. will further benefit from skilled Inpatient Physical Therapy while stay at [facility] to further reduce risk for fall. Eval Complexity Eval Charge Codes [id number] - Low Complexity PHYSICIAN CERTIFICATION: I certify the specified therapy services for Regino Gonzalez are required, authorized, and reviewed every 30 days.
--- NOTE | 2024-02-28 17:55 | PC.NURSE ---
PT IS SITTING UP IN THE CHAIR. ALERT AND ORIENTED X4. PT'S SPEECH IS DIFFICULT TO UNDERSTAND. AMBULATES TO THE BATHROOM WITH 1 ASSIST. CLEAN DRESSINGS APPLIED TO PT'S BUE. LUNG SOUNDS DIMINISHED WITH SCATTERED RHONCHI. PT HAS HAD SOME DIFFICULTY WITH SWALLOWING FOOD THIS SHIFT. NOTIFIED HOSPITALIST. SPEECH EVAL WAS ORDERED AND PT WAS CHANGED TO A MECHANICAL SOFT DIET WITH GROUND MEATS. WILL CONTINUE TO MONITOR.
--- NOTE | 2024-02-28 19:54 | P.CONS_ITS ---
History of Present Illness *Admission Date: 02/28/24 *History of present illness: Patient has lived by himself near his sister for the last 3 years with declining health, has fallen 10 times this year with several fractures, including R distal radius seen in Dr. Singh's office on 02/24/24, where decision was made to treat nonoperatively. Most recent fall resulted in hip pain, which was shown to be chronic AVN in L femoral head, which will be treate nonoperatively. Patient has a long-term history of difficulty with speech, he is hard to understand at times but actually knows what he is saying his sister knowing him well understands everything he is saying. [facility] Disclaimer: The information contained in this section may have been updated after the patient was seen, as this information can be updated by other users. Medical History (Updated 02/28/24 @ 05:45 by Madonna Darling RN) Fracture of radial shaft, with ulna, right, closed Depression CAD (coronary artery disease) CHF (congestive heart failure) COPD (chronic obstructive pulmonary disease) Constipation GERD (gastroesophageal reflux disease) Seasonal allergies HLD (hyperlipidemia) HTN (hypertension) Surgical History (Updated 02/28/24 @ 05:45 by Madonna Darling RN) Hip joint replacement status History of surgery on arm Social History Smoking Status: Unknown if ever smoked alcohol intake: never current occupational status: retired Travel in the last 8 weeks: None Review of Systems Constitutional Constitutional: Reports frequent falls *Musculoskeletal Musculoskeletal: Reports abnormal gait *Neurologic Neurologic: Reports abnormal gait and Reports frequent falls Meds Home Medications and Allergies Home Medications ?Medication ?Instructions ?Recorded ?Confirmed ?Type acetaminophen 500 mg tablet 1,000 mg PO HS 02/24/24 02/28/24 History albuterol sulfate 2.5 mg/3 mL 2.5 mg inhalation Q6HP PRN Wheezing 02/24/24 02/28/24 History (0.083 %) solution for nebulization aspirin 81 mg tablet,delayed 81 mg PO DAILY 02/24/24 02/28/24 History release docusate sodium 100 mg capsule 100 mg PO DAILY 02/24/24 02/28/24 History escitalopram oxalate 20 mg tablet 20 mg PO DAILY 02/24/24 02/28/24 History fexofenadine 180 mg tablet 180 mg PO DAILY 02/24/24 02/28/24 History furosemide 40 mg tablet 20 mg PO DAILY 02/24/24 02/28/24 History isosorbide mononitrate 30 mg 30 mg PO BID 02/24/24 02/28/24 History tablet,extended release 24 hr levofloxacin 500 mg tablet 500 mg PO DAILY 7 days #7 tabs 02/24/24 02/28/24 Rx lovastatin 40 mg tablet 40 mg PO HS 02/24/24 02/28/24 History metoprolol tartrate 25 mg tablet 12.5 mg PO BID 02/24/24 02/28/24 History montelukast 10 mg tablet 10 mg PO HS 02/24/24 02/28/24 History omeprazole 40 mg capsule,delayed 40 mg PO DAILY 02/24/24 02/28/24 History release potassium chloride 20 mEq 20 meq PO DAILY 02/24/24 02/28/24 History tablet,extended release(part/cryst) triamcinolone acetonide 0.1 % 0.1 applic topical BIDP PRN Rash 02/24/24 02/28/24 History topical ointment New Prescriptions to Start Prescriptions: Allergies Allergy/AdvReac Type Severity Reaction Status Date / Time No Known Allergies Allergy Verified 02/24/24 14:07 Ortho Exam (Inpt) Vital signs and Labs for Last 24 Hours: Temp Pulse Resp BP Pulse Ox O2 Del Method 98.2 F 98 H 17 133/74 93 L Room Air 02/28/24 08:00 02/28/24 08:00 02/28/24 08:00 02/28/24 08:00 02/28/24 08:00 02/28/24 18:17 Laboratory Results - last 24 hr 02/27/24 23:11: WBC 2.9 L, RBC 4.73, Hgb 15.8, Hct 52.3 H, MCV 110.6 H, MCH 33.3 H, MCHC 30.1 L, RDW 15.5, Plt Count 150, MPV 7.7, Neut % (Auto) 78.6, Lymph % (Auto) 13.6, [place] % (Auto) 5.9, Eos % (Auto) 1.4, Baso % (Auto) 0.5, Neut # (Auto) 2.3, Lymph # (Auto) 0.4 L, [place] # (Auto) 0.2, Eos # (Auto) 0.0, Baso # (Auto) 0.0, Sodium 138, Potassium 3.8, Chloride 103, Carbon Dioxide 29, Anion Gap 9.8, BUN 17, Creatinine 1.90 H, Estimated Creat Clear 31, Estimated GFR 34 L , Est GFR ( Amer) 41 L, Glucose 102 H, Calcium 8.9, Total Bilirubin 0.6, AST 29, ALT 15, Alkaline Phosphatase 104, Total Protein 7.9, Albumin 3.9, G lobulin 4.0 H, Albumin/Globulin Ratio 1.0 L, Lipase 53, Plasma/Serum Alcohol < 10 I & O for Labs for Last 24 Hours: Intake & Output 02/25/24 02/26/24 02/27/24 02/28/24 23:59 23:59 23:59 23:59 Intake Total 820 / 820 Output Total 150 / 150 Balance 670 / 670 Weight 72.575 kg 71.078 kg Additional findings:: Right upper extremity: Splint removed for exam. Areas of abrasion are C/D/I with signs od healing. SErosang drainage with on dressings. DSDs applied and splint reapplied. Patient is neurovascularly intact distal to the volar splint with less than 2-second cap refill at all distal fingertips, sensation and motor intact in median/ulnar/radial distributions. Splint itself is in clean dry and intact. There is no swelling above the level of the splint. Results Labs 02/27/24 23:11 02/27/24 23:11 Labs: Abnormal lab results 02/27/24 Range/Units 23:11 WBC 2.9 L (4.8-10.8) K/mm3 Hct 52.3 H (42.0-52.0) % MCV 110.6 H (80-94) fl MCH 33.3 H (27.0-31.2) pg MCHC 30.1 L (31.8-35.4) g/dL Lymph # (Auto) 0.4 L (0.7-4.5) K/mm3 Creatinine 1.90 H (0.66-1.25) mg/dl Estimated GFR 34 L (>60) ml/min Est GFR ( Amer) 41 L (>60) ML/MIN Glucose 102 H (74-100) mg/dl Globulin 4.0 H (1.3-3.2) g/dL Albumin/Globulin Ratio 1.0 L (1.1-1.8) H & H 02/27/24 Range/Units 23:11 Hgb 15.8 (14.1-18.0) g/dL Hct 52.3 H (42.0-52.0) % All other labs normal. Assessment and Plan *Assessment and plan (1) Avascular necrosis of left femoral head: Status: Acute Category: Medical Code(s): M87.052 - Idiopathic aseptic necrosis of left femur (2) Closed fracture distal radius and ulna: Status: Acute Category: Medical Code(s): S52.509A - Unspecified fracture of the lower end of unspecified radius, initial encounter for closed fracture; S52.609A - Unspecified fracture of lower end of unspecified ulna, initial encounter for closed fracture Plan Plan is to continue with outpatient follow up for Distal radius fracture, and nonoperative treatment for L femoral head AVN. Pain control PRN Recommend continuing Levofloxacin 500 QD as prescribed in office for skin tears with purulent drainage on R arm. May reinforce dressing for drainage PRN. NWB to RUE in splint at all times. Ice and elevation to RUE for swelling.
[2024-02-29] VITALS (10 sets, daily range): BP systolic 111–142; BP diastolic 58–77; PULSE 58–110; RESP 17–20; TEMP 37.1–37.2; O2SAT 93–97; BMI 25.9
--- NOTE | 2024-02-29 04:38 | PC.NURSE ---
Patient alert and oriented x4 upon assessment. Tolerating room air well. Patient stated at the beginning of the shift he was extremely exhausted and has slept the entire shift. Cast/sling noted to right upper arm. Dressings in place to left upper arm. Lung sounds clear. No needs expressed. Bed alarm on for patient safety. Call light within reach.
[2024-02-29] MEDS: IPRATROPIUM/ALBUTEROL 3 ML NEB IH ×4 (05:03→23:22)
[2024-02-29 07:57] LABS: Basophils % 0.3 % (0.1-2.0); Eosinophils # 0.2 K/mm3 (0.0-0.4); Eosinophils % 2.6 % (0.1-12.0); Hematocrit 36.7 % (42.0-52.0); Hemoglobin 11.1 g/dL (14.1-18.0); Lymphocytes # 0.9 K/mm3 (0.7-4.5); Lymphocytes % 12.7 % (10-50); Mean Corpuscular HGB Conc 30.3 g/dL (31.8-35.4); Mean Corpuscular Hemoglobin 33.5 pg (27.0-31.2); Mean Corpuscular Volume 110.4 fl (80-94); Mean Platelet Volume 8.2 fl (7.4-10.4); Monocytes # 0.5 K/mm3 (0.1-1.0); Monocytes % 6.6 % (1.7-9.3); Neutrophils # 5.5 K/mm3 (1.8-7.8); Neutrophils % 77.8 % (37.0-80.0); Platelet Count 320 K/mm3 (142-424); Red Blood Count 3.32 M/mm3 (4.60-6.20); Red Cell Distribution Width 15.7 % (11.5-17.5)
[2024-02-29 08:06] LABS: Alanine Aminotransferase 17 U/L (12-78); Albumin Level 3.8 g/dl (3.5-5.0); Albumin/Globulin Ratio 0.9 (1.1-1.8); Alkaline Phosphatase 89 U/L (38-126); Anion Gap 7.2 mEq/L (5-15); Aspartate Amino Transferase 37 U/L (17-59); Bilirubin,Total 0.7 mg/dl (0.2-1.3); Blood Urea Nitrogen 11 mg/dl (9-20); Calcium 9.1 mg/dl (8.4-10.2); Carbon Dioxide 33 mmol/L (22.0-30.0); Chloride 100 mmol/L (98-107); Creatinine Clearance Estimated 41 mL/min (50-200); Estimated Glomerular Filt Rate 49 ml/min (>60); GFR (African American) 59 ML/MIN (>60); Globulin 4.3 g/dL (1.3-3.2); Glucose 103 mg/dl (74-100); Magnesium 1.7 mg/dl (1.6-2.3); Potassium 3.2 mmoL/L (3.5-5.1); Sodium 137 mmol/L (136-145); Total Protein,Serum 8.1 g/dl (6.3-8.2)
[2024-02-29] MEDS: ENOXAPARIN 40MG/0.4ML SYRINGE 40 MG SQ (08:20)
[2024-02-29] MEDS: PANTOPRAZOLE 40MG TABLET 40 MG PO (08:21)
[2024-02-29] MEDS: DOCUSATE SODIUM 100 MG CAPSULE PO (08:21)
[2024-02-29] MEDS: ACETAMINOPHEN 325MG TAB 650 MG PO (08:22)
--- NOTE | 2024-02-29 10:00 | EXP.ACUTE.PN ---
Subjective *Date: 02/29/24 *Time: 16:31 Medical Exam Vital signs and Labs for Last 24 Hours: Vital Signs Temp Pulse Pulse Resp BP Pulse Ox O2 Del Method 02/29/24 08:00 Room Air 02/29/24 07:53 98.8 F 107 H 20 128/64 95 Room Air 02/29/24 07:36 Room Air 02/29/24 06:38 Room Air 02/29/24 05:05 110 H 02/29/24 05:05 108 H 02/29/24 04:57 Room Air 02/29/24 04:00 98.9 F 103 H 17 111/77 93 L Room Air 02/29/24 03:00 Room Air 02/29/24 01:00 Room Air 02/28/24 23:00 Room Air 02/28/24 21:00 Room Air 02/28/24 20:00 98.6 F 87 17 143/70 H 94 L Room Air 02/28/24 19:55 94 L Room Air 02/28/24 18:17 Room Air 02/28/24 16:59 Room Air 02/28/24 15:00 Room Air 02/28/24 12:58 Room Air 02/28/24 11:00 Room Air Intake and Output 02/28/24 02/29/24 02/29/24 23:59 07:59 15:59 Intake Total 160 / 820 480 / 480 Output Total 0 / 150 Balance 160 / 670 480 / 480 Intake: Intake, Oral Amount 160 / 820 480 / 480 Output: Output, Urine Amount 0 / 150 Other: Number of Unmeasured Voids 1 Weight 70.715 kg Patient Weight 02/29/24 23:59 Weight 70.715 kg Laboratory Results - last 24 hr 02/29/24 07:38: WBC 7.0 D, RBC 3.32 L D, Hgb 11.1 L, Hct 36.7 L, MCV 110.4 H, MCH 33.5 H, MCHC 30.3 L, RDW 15.7, Plt Count 320 D, MPV 8.2, Neut % (Auto) 77.8, Lymph % (Auto) 12.7, [place] % (Auto) 6.6, Eos % (Auto) 2.6, Baso % (Auto) 0.3, Neut # (Auto) 5.5, Lymph # (Auto) 0.9, [place] # (Auto) 0.5, Eos # (Auto) 0.2, Baso # (Auto) 0.0, Sodium 137, Potassium 3.2 L, Chloride 100, Carbon Dioxide 33 H, Anion Gap 7.2, BUN 11 D, Creatinine 1.40 H D, Estimated Creat Clear 41, Estimated GFR 49 L, Est GFR ( Amer) 59 D, Glucose 103 H, Calcium 9.1, Magnesium 1.7, Total Bilirubin 0.7, AST 37 D, ALT 17, Alkaline Phosphatase 89, Total Protein 8.1, Albumin 3.8, Globulin 4.3 H, Albumin/Globulin Ratio 0.9 L I & O for Labs for Last 24 Hours: Intake & Output 02/26/24 02/27/24 02/28/24 02/29/24 23:59 23:59 23:59 23:59 Intake Total 820 / 820 480 / 480 Output Total 150 / 150 Balance 670 / 670 480 / 480 Weight 72.575 kg 71.078 kg 70.715 kg Assessment and Plan *Assessment and plan (1) Fall: Status: Acute Category: Medical Code(s): W19.XXXA - Unspecified fall, initial encounter (2) Leukopenia: Status: Acute Category: Medical Code(s): D72.819 - Decreased white blood cell count, unspecified (3) GLORIA (acute kidney injury): Status: Acute Category: Medical Code(s): N17.9 - Acute kidney failure, unspecified (4) Closed fracture distal radius and ulna: Status: Acute Category: Medical Code(s): S52.509A - Unspecified fracture of the lower end of unspecified radius, initial encounter for closed fracture; S52.609A - Unspecified fracture of lower end of unspecified ulna, initial encounter for closed fracture (5) Rib fracture: Status: Acute Category: Medical Code(s): S22.39XA - Fracture of one rib, unspecified side, initial encounter for closed fracture (6) Avascular necrosis of left femoral head: Status: Acute Category: Medical Code(s): M87.052 - Idiopathic aseptic necrosis of left femur Plan Patient falling at home, inability to care for self. Has sustained multiple fractures. Has mild GLORIA. Discussed case with ER, request admission for therapy eval and safe dispo planning. Patient not safe to discharge home at this time. Medicine agreed to admit for further management. Problems addressed as follows: Self care deficit Frequent falls -Patient no longer able to care for himself at home. Therapy evaluated and recommends placement. Case management to assist with placement starting Friday morning Closed fracture distal radius and ulna. Rib fractures - Toradol 15 mg as needed every 6 hours IV for pain. - Tylenol 650 mg as needed every 4 hours for pain - Orthopedics evaluated patient. Nonoperative management. Follow-up as an outpatient. Non-weightbearing to right upper extremity in splint at all times. -White normal at 7.0. Hemoglobin 11.1. GLORIA: Kidney function improving, creatinine 1.4, BUN 11. Almost back to baseline. Hypokalemia: Potassium 3.2, magnesium 1.7. Will replace orally today. Repeat CBC, CMP, magnesium ordered for the morning. Continue citalopram 40 mg daily for mood DNR Regular diet Unable to discharge home, awaiting placement. Case management assisting.
--- NOTE | 2024-02-29 16:44 | PC.NURSE ---
PT IS SITTING UP IN THE CHAIR. ALERT AND ORIENTED X4. EATING AND DRINKING FAIR. PT HAS TOLERATED MECHANICAL SOFT DIET WELL. 2 ASSIST TO GET OOB TO CHAIR. SPLINT NOTED TO RUE. LUNG SOUNDS DIMINISHED WITH AUDIBLE WHEEZING NOTED. ABDOMEN SOFT/NON TENDER WITH ACTIVE BOWEL SOUNDS. WILL CONTINUE TO MONITOR.
[2024-02-29] MEDS: levoFLOXacin 500MG TAB 500 MG PO (17:14)
[2024-02-29] MEDS: PRAVASTATIN 40MG TAB 40 MG PO (20:01)
[2024-02-29] MEDS: MONTELUKAST SODIUM 10MG TAB 10 MG PO (20:01)
[2024-02-29] MEDS: ISOSORBIDE MONO 30MG TAB.ER.24H 30 MG PO (20:01)
[2024-02-29] MEDS: METOPROLOL TARTRATE 25MG TABLET 12.5 MG PO (20:01)
[2024-02-29] MEDS: POTASSIUM CHLORIDE 20MEQ TAB 40 MEQ PO (20:01)
[2024-03-01 04:00] VITALS: BP 115/49; PULSE 81; RESP 17; TEMP 36.8; O2SAT 97; BMI 25.9
--- NOTE | 2024-03-01 05:53 | PC.NURSE ---
No acute changes overnight. Patient has rested well this shift with no needs expressed. Call light within reach.
[2024-03-01] MEDS: IPRATROPIUM/ALBUTEROL 3 ML NEB IH ×2 (06:32→13:21)
[2024-03-01 06:58] LABS: Basophils % 0.2 % (0.1-2.0); Eosinophils # 0.2 K/mm3 (0.0-0.4); Eosinophils % 2.4 % (0.1-12.0); Hematocrit 31.9 % (42.0-52.0); Lymphocytes # 0.8 K/mm3 (0.7-4.5); Lymphocytes % 12.8 % (10-50); Mean Corpuscular HGB Conc 30.6 g/dL (31.8-35.4); Mean Corpuscular Hemoglobin 33.7 pg (27.0-31.2); Mean Corpuscular Volume 110.2 fl (80-94); Mean Platelet Volume 8.3 fl (7.4-10.4); Monocytes # 0.5 K/mm3 (0.1-1.0); Monocytes % 8.3 % (1.7-9.3); Neutrophils % 76.3 % (37.0-80.0); Platelet Count 261 K/mm3 (142-424); Red Blood Count 2.89 M/mm3 (4.60-6.20); Red Cell Distribution Width 15.6 % (11.5-17.5); White Blood Count 6.5 K/mm3 (4.8-10.8)
[2024-03-01 07:04] LABS: Albumin Level 3.3 g/dl (3.5-5.0); Chloride 101 mmol/L (98-107); Sodium 133 mmol/L (136-145)
[2024-03-01 07:05] LABS: Potassium 3.6 mmoL/L (3.5-5.1)
[2024-03-01 07:07] LABS: Alanine Aminotransferase 12 U/L (12-78); Alkaline Phosphatase 74 U/L (38-126); Anion Gap 2.6 mEq/L (5-15); Aspartate Amino Transferase 30 U/L (17-59); Bilirubin,Total 0.8 mg/dl (0.2-1.3); Blood Urea Nitrogen 12 mg/dl (9-20); Carbon Dioxide 33 mmol/L (22.0-30.0); Creatinine Clearance Estimated 47 mL/min (50-200); Estimated Glomerular Filt Rate 58 ml/min (>60); GFR (African American) 70 ML/MIN (>60)
[2024-03-01 07:08] LABS: Calcium 8.2 mg/dl (8.4-10.2); Globulin 3.4 g/dL (1.3-3.2); Glucose 91 mg/dl (74-100); Total Protein,Serum 6.7 g/dl (6.3-8.2)
[2024-03-01 08:00] VITALS: BP 117/57; PULSE 93; RESP 18; TEMP 37.1; O2SAT 96
[2024-03-01 08:01] LABS: Magnesium 1.5 mg/dl (1.6-2.3)
[2024-03-01 08:12] LABS: Hemoglobin 9.9 g/dL (14.1-18.0)
--- NOTE | 2024-03-01 09:13 | HMH.OTEV ---
OT Inpatient Evaluation Rehab OT IP Evaluation Start: 02/28/24 02:53 Freq: ONCE Status: Active Protocol: Document 03/01/24 09:06 ARNIELYLY (Rec: 03/01/24 09:13 BLAINEKAVITA [id number]) Rehab OT IP Assessment Subjective History Patient has lived by himself near his sister for the last 3 years with declining health, over the last year he has fallen 10 times with several fractures, they were he had fallen at home they were unable to get him by the phone the police had to enter the house, but the sister arrived just before then with the summers to unlock the door and he was brought to the emergency room. The sister had been looking for long-term care as he is no longer able to live by himself, he did come in by the ambulance only wearing an adult diaper no pant. Patient has a long-term history of difficulty with speech, he is hard to understand at times but actually knows what he is saying his sister knowing him well understands everything he is saying. Have talked with the patient he knows he needs long-term care also has a living will at home and is a DO NOT RESUSCITATE. After consulting with the ER physician and examining the data I do agree that this patient needs to be admitted, he cannot safely stay by himself. Patient lives alone in 1 story apartment. Uses rollator to ambulate. Sitter comes 2x/wk to assist with ADLs and housekeeping tasks. sister assist with bathing and outside appt and grocery shopping. Subjective I can get up. Instructed Patient on safety awareness to complete bed mobility from supine->sit @ EOB->stand with usage of rollator requiring CGA. Patient complete fx'l transfers and fx'l mobility within the room ~25ft with Min A with usage of rollator. fair to fair+ dynamic standing balance with slight shuffling noticed. hx of falling at home. Left Patient sitting upright at EOB with needs met and sister in room at end of session. Objective Patient Orientation Person,Place,Name,Age,Birthday ,Year Right Upper Extremity Gross ROM Mod Limitation 50% Left Upper Extremity Gross ROM WFL Bed Mobility bed mobility - supine/sit Assist Level Minimal x 1 (25% assist) Transfer Training Sit/Stand/Step Transfer Assist Level Minimal x 1 (25% assist) Chair Transfer Ability Minimal x 1 (25% assist) Chair Transfer Technique Sit to/from Ambulatory Chair Transfer Assistive Devices Rolling Walker Rehab OT IP prob,goals,plan Problems Date of Evaluation: 03/01/24 OT IP Problems Bed Mobility,Transfers,Balance ,Self care,Safety Rehab Potential Rehab Potential Good Equipment Needs Assistive Devices Rolling / Wheeled Walker Plan OT intervention Plan Bed Mobility,Transfers,Balance ,Self care,Safety,Therapeutic Exercise OT Plan Frequency Daily Duration LOS Discharge Goals Bed Mobility Ability Assistance x1 Sit to Stand Chair Transfer Ability Contact Guard/Hand Hold Chair Transfer Ability Contact Guard/Hand Hold Chair Transfer Technique Sit to/from Ambulatory Chair Transfer Assistive Devices Rolling Walker Discharge Plan OT Discharge Plan Recommend placement for patient after medical d/c. sister stated she is unable to assist patient at home due to decline in health and repeated falls. Patient will continue to be seen at [facility] IP services til appropriate d/c. Eval Complexity Eval Charge Codes 02502 - Low Complexity PHYSICIAN CERTIFICATION: I certify the specified therapy services for Regino Gonzalez are required, authorized, and reviewed every 30 days.
--- NOTE | 2024-03-01 09:44 | SW/DCPLANNER ---
Addendum entered by Alona De La Cruz 03/01/24 14:36: Lisa w/ [facility] is able to accept this patient. Patient will discharge today ICF level of care. Original Note: I spoke w/ this patient and his sister regarding plans once medically stable for discharge. PT/OT evaluated patient and recommend SNF level of care. Patient is agreeable to placement at this time. Patient/sister preference is [facility], [facility] or [facility]. I will follow up w/ facilities and fax patient information. I will continue to follow up.
[2024-03-01] MEDS: POTASSIUM CHLORIDE 20MEQ TAB 40 MEQ PO ×2 (10:06→12:00)
[2024-03-01] MEDS: ENOXAPARIN 40MG/0.4ML SYRINGE 40 MG SQ (10:06)
[2024-03-01] MEDS: LORATADINE 10MG TABLET 10 MG PO (10:06)
[2024-03-01] MEDS: METOPROLOL TARTRATE 25MG TABLET 12.5 MG PO (10:06)
[2024-03-01] MEDS: CITALOPRAM 40MG TABLET 40 MG PO (10:06)
[2024-03-01] MEDS: DOCUSATE SODIUM 100 MG CAPSULE PO (10:06)
[2024-03-01] MEDS: PANTOPRAZOLE 40MG TABLET 40 MG PO (10:06)
[2024-03-01] MEDS: ISOSORBIDE MONO 30MG TAB.ER.24H 30 MG PO (10:08)
[2024-03-01] MEDS: levoFLOXacin 500MG TAB 500 MG PO (12:00)
--- NOTE | 2024-03-01 14:30 | HMH.SLDYSPHA ---
Speech & Language Evaluation Speech/Language Dysphagia Evaluation Start: 03/01/24 14:12 Freq: ONCE Status: Active Protocol: Document 03/01/24 14:12 CHRISTIAN (Rec: 03/01/24 14:29 [facility] [id number]) Dysphagia Assess/Goals/Plan Assessment Date of Evaluation: 03/01/24 Evaluation Type Initial Certification Assessment/Problems swallowing problems per MD order Does Patient Qualify for Service No Qualify/Failure Comment Based on clinical observations made throughout CSE, mastication and manipulation of bolus and swallowing are WFL and no further skilled speech therapy services are warranted at this time. COLLECTIONS CURATOR will f/u as needed. Recommendations PHYSICIAN CERTIFICATION: The specified therapy services are required, authorized, and reviewed every 30 days. Diet Recommendations Mechanical Soft Liquid Type Recommendations Normal/Thin SL Swallow Guidelines Standard Aspiration Prec., Crush meds as allowed*,Eat at slow rate,Reflux precautions Crush Meds Crush lge pills w/applesa Dysphagia Swallow Precautions/Strategies Sitting Upright (90 deg) Plan Pt/Guardian verbally ack understanding Yes of dx/prognosis/goals G -code Required No Education Instructions provided Discussed clinical observations made throughout CSE, diet recommendations, and aspiration precautions/ compensatory strategies with pt/pt's family, nursing, and care management all of which expressed understanding. Pt/Caregiver able to recall information Able to recall/restate Reinforcement needed No Speech & Language HPI History Present Illness Description of Patient Problem COLLECTIONS CURATOR pulled following information from chart review and H&P, Patient has lived by himself near his sister for the last 3 years with declining health, over the last year he has fallen 10 times with several fractures, they were he had fallen at home they were unable to get him by the phone the police had to enter the house, but the sister arrived just before then with the summers to unlock the door and he was brought to the emergency room. The sister had been looking for long-term care as he is no longer able to live by himself , he did come in by the ambulance only wearing an adult diaper no pant. Patient has a long-term history of difficulty with speech, he is hard to understand at times but actually knows what he is saying his sister knowing him well understands everything he is saying. Have talked with the patient he knows he needs long-term care also has a living will at home and is a DO NOT RESUSCITATE. Hearing Hearing Ability Hard of Hearing General Information General Current Food Consistancy Mechanical Soft,Dysphagia Mechanical Soft,Ground Meats, Thin Liquids Dentition Upper & Lower Dentures Patient Orientation Person,Place,Time Ability to Follow Directions Good Dysphagia:Food Presentation Evaluation Food Type Pureed,Mechanical Soft,Liquid, Pudding Dysphagia Evaluation Summary Pt was seen sitting upright in his chair with family present following breakfast. He reportedly does not enjoy drinking water and prefers Pepsi/soda. He was given all bolus consistencies trialed x3 to assess for consistency and fatigue. He was given thin liquids (thin water presented via open cup/straw sip, and two consecutive sips from straw/open cup), puree ( applesauce), Pudding, and mechanical soft (cereal bar.) Regular solids not trialed 2' pt report that he does not eat with his dentures 2' being ill fitting. No overt s/sxs of aspiration were observed at this time. COLLECTIONS CURATOR recommends pt continue with MS ground meat/ thin liquid diet given preference to not wearing dentures with meals. COLLECTIONS CURATOR will f/u if changes arise or pt request, but at this time, no further skilled speech therapy services are warranted. Stroke Dysphagia Assessment PHYSICIAN CERTIFICATION: I certify the specified therapy services for Regino Gonzalez are required, authorized, and reviewed every 30 days.
--- NOTE | 2024-03-01 14:32 | EXP.DC.SUM ---
General Admission date:: 02/28/24 Discharge date: 03/01/24 HPI HPI HPI: Patient has lived by himself near his sister for the last 3 years with declining health, has fallen 10 times this year with several fractures, including R distal radius seen in Dr. Singh's office on 02/24/24, where decision was made to treat nonoperatively. Most recent fall resulted in hip pain, which was shown to be chronic AVN in L femoral head, which will be treate nonoperatively. Patient has a long-term history of difficulty with speech, he is hard to understand at times but actually knows what he is saying his sister knowing him well understands everything he is saying. Hospital Course Hospital Course Hospital Course: Patient falling at home, inability to care for self. Has sustained multiple fractures. Has mild GLORIA. Discussed case with ER, request admission for therapy eval and safe dispo planning. Patient not safe to discharge home at this time. Medicine agreed to admit for further management. Patient has done well during admission. Working with therapy. Unfortunately not safe to discharge home and necessitating significant assistance. Will discharge to [facility] for further management. Problems addressed as follows: Self care deficit Frequent falls -Patient no longer able to care for himself at home. Therapy is evaluated and worked with patient during admission. Recommend placement to skilled care. Graciously accepted to [facility] and rehab in [facility]. Closed fracture distal radius and ulna. Rib fractures -Pain control during admission. Tolerating Tylenol and Toradol. Will continue Tylenol at discharge. Orthopedics evaluated. Recommends nonoperative management. Recommend following up as outpatient to further evaluate healing. Nonweightbearing to right upper extremity at this time. In splint at all times. Finishing empiric course of antibiotics for cellulitis overlying his fractures. White count on day of discharge is 6.5. GLORIA: Kidney function abnormal on admission. Improved to creatinine of 1.2, BUN 12 by day of discharge. This is his baseline. Hypokalemia: Potassium low initially on admission. Improved to 3.6 by day of discharge. Continue daily supplementation per med rec. Recommend CBC, CMP, magnesium in 1 week to monitor stability of labs. Chronic anemia. Hemoglobin of 10 on day of discharge. Continue citalopram 40 mg daily for mood DNR during admission. Recommend goals of care discussion and CODE STATUS evaluation on arrival. Stable to discharge to rehab for further management. Total time spent on discharge 32 minutes in counseling, documentation, chart review, and direct care with patient. Exam Data for Last 24 hours Vital signs and Labs for Last 24 Hours: Temp Pulse Resp BP Pulse Ox O2 Del Method 98.8 F 93 H 18 117/57 L 96 Room Air 03/01/24 08:00 03/01/24 08:00 03/01/24 08:00 03/01/24 08:00 03/01/24 08:00 03/01/24 08:00 Laboratory Results - last 24 hr 03/01/24 06:17: WBC 6.5, RBC 2.89 L, Hgb 9.9 L D, Hct 31.9 L, MCV 110.2 H, MCH 33.7 H, MCHC 30.6 L, RDW 15.6, Plt Count 261, MPV 8.3, Neut % (Auto) 76.3, Lymph % (Auto) 12.8, [place] % (Auto) 8.3, Eos % (Auto) 2.4, Baso % (Auto) 0.2, Neut # (Auto) 5.0, Lymph # (Auto) 0.8, [place] # (Auto) 0.5, Eos # (Auto) 0.2, Baso # (Auto) 0.0, Sodium 133 L, Potassium 3.6, Chloride 101, Carbon Dioxide 33 H, Anion Gap 2.6 L, BUN 12, Creatinine 1.20, Estimated Creat Clear 47, Estimated GFR 58 L, Est GFR ( Amer) 70, Glucose 91, Calcium 8.2 L, Magnesium 1.5 L D, Total Bilirubin 0.8, AST 30, ALT 12 D, Alkaline Phosphatase 74, Total Protein 6.7, Albumin 3.3 L D, Globulin 3.4 H, Albumin/Globulin Ratio 1.0 L I & O for Last 24 hours: Intake & Output 02/27/24 02/28/24 02/29/24 03/01/24 23:59 23:59 23:59 23:59 Intake Total 820 / 820 1250 / 1250 480 / 480 Output Total 150 / 150 375 / 375 450 / 450 Balance 670 / 670 875 / 875 30 / 30 Weight 72.575 kg 71.078 kg 70.715 kg 70.7 kg Constitutional Constitutional: no acute distress, average body habitus, chronically ill appearing and cooperative *Routine HEENT Exam Head: Present normocephalic Eye: Present EOMI and PERRL ENT: Present mucous membranes moist *Routine Neck Exam Neck: Present supple; Absent lymphadenopathy Routine Chest/Breast/Axilla Exam Chest wall: Present tenderness Comments: Chest wall overlying ribs is tender *Routine Respiratory Exam Respiratory: Present CTA bilaterally; Absent respiratory distress, rhonchi, wheezes or crackles *Routine Cardiovascular Exam Cardiovascular: Present RRR *Routine Abdominal Exam Abdominal: Present soft and normoactive bowel sounds; Absent tenderness *Routine Exam Patient deferred: penile exam *Routine Extremities Exam Extremities: Absent cyanosis, clubbing or edema Comments: Right forearm and splint. *Routine Skin Exam Skin: Present intact and warm; Absent rash *Routine Neurological Exam Neurological: Present alert and moving all extremities; Absent altered mental status Comments: Baseline mentation. Oriented to self. Answers questions appropriately. Results Data Completed and Pending Labs on day of discharge: Labs from last 24 hours 03/01/24 06:17 WBC 6.5 RBC 2.89 L Hgb 9.9 L D Hct 31.9 L MCV 110.2 H MCH 33.7 H MCHC 30.6 L RDW 15.6 Plt Count 261 MPV 8.3 Neut % (Auto) 76.3 Lymph % (Auto) 12.8 [place] % (Auto) 8.3 Eos % (Auto) 2.4 Baso % (Auto) 0.2 Neut # (Auto) 5.0 Lymph # (Auto) 0.8 [place] # (Auto) 0.5 Eos # (Auto) 0.2 Baso # (Auto) 0.0 Sodium 133 L Potassium 3.6 Chloride 101 Carbon Dioxide 33 H Anion Gap 2.6 L BUN 12 Creatinine 1.20 Estimated Creat Clear 47 Estimated GFR 58 L Est GFR ( Amer) 70 Glucose 91 Calcium 8.2 L Magnesium 1.5 L D Total Bilirubin 0.8 AST 30 ALT 12 D Alkaline Phosphatase 74 Total Protein 6.7 Albumin 3.3 L D Globulin 3.4 H Albumin/Globulin Ratio 1.0 L DS: Diagnosis Discharge Diagnosis (1) Fall: Status: Acute Code(s): W19.XXXA - Unspecified fall, initial encounter (2) Leukopenia: Status: Acute Code(s): D72.819 - Decreased white blood cell count, unspecified (3) GLORIA (acute kidney injury): Status: Acute Code(s): N17.9 - Acute kidney failure, unspecified (4) Closed fracture distal radius and ulna: Status: Acute Code(s): S52.509A - Unspecified fracture of the lower end of unspecified radius, initial encounter for closed fracture; S52.609A - Unspecified fracture of lower end of unspecified ulna, initial encounter for closed fracture (5) Rib fracture: Status: Acute Code(s): S22.39XA - Fracture of one rib, unspecified side, initial encounter for closed fracture (6) Avascular necrosis of left femoral head: Status: Acute Code(s): M87.052 - Idiopathic aseptic necrosis of left femur Meds Home Medications and Allergies Home Medications ?Medication ?Instructions ?Recorded ?Confirmed ?Type aspirin 81 mg tablet,delayed 81 mg PO DAILY 02/24/24 02/28/24 History release docusate sodium 100 mg capsule 100 mg PO DAILY 02/24/24 02/28/24 History potassium chloride 20 mEq 20 meq PO DAILY 02/24/24 02/28/24 History tablet,extended release(part/cryst) triamcinolone acetonide 0.1 % 0.1 applic topical BIDP PRN Rash 02/24/24 02/28/24 History topical ointment acetaminophen 500 mg tablet 1,000 mg (2 x 500 mg) PO Q6HP PRN 03/01/24 Rx fever or pain 30 days #120 tabs albuterol sulfate 2.5 mg/3 mL 2.5 mg (3 mL) inhalation Q6HP PRN 03/01/24 Rx (0.083 %) solution for nebulization Wheezing 30 days #180 mL escitalopram oxalate 20 mg tablet 20 mg PO DAILY 30 days #30 tabs 03/01/24 Rx fexofenadine 180 mg tablet 180 mg PO DAILY 30 days #30 tabs 03/01/24 Rx furosemide 40 mg tablet 20 mg (1/2 x 40 mg) PO DAILY 30 03/01/24 Rx days #15 tabs isosorbide mononitrate 30 mg 30 mg PO BID 30 days #60 tabs 03/01/24 Rx tablet,extended release 24 hr levofloxacin 500 mg tablet 500 mg PO DAILY 3 days #3 tabs 03/01/24 02/28/24 Rx lovastatin 40 mg tablet 40 mg PO HS 30 days #30 tabs 03/01/24 Rx metoprolol tartrate 25 mg tablet 12.5 mg (1/2 x 25 mg) PO BID 30 03/01/24 Rx days #30 tabs montelukast 10 mg tablet 10 mg PO HS 30 days #30 tabs 03/01/24 Rx omeprazole 40 mg capsule,delayed 40 mg PO DAILY 30 days #30 caps 03/01/24 Rx release New Prescriptions to Start Prescriptions: acetaminophen Daniel,Clement albuterol sulfate Daniel,Clement escitalopram oxalate Daniel,Clement fexofenadine Daniel,Clement furosemide Daniel,Clement isosorbide mononitrate Daniel,Clement lovastatin Daniel,Clement metoprolol tartrate Daniel,Clement montelukast Daniel,Clement omeprazole Daniel,Clement Allergies Allergy/AdvReac Type Severity Reaction Status Date / Time No Known Allergies Allergy Verified 02/24/24 14:07 Discharge Plan Disposition Patient Disposition: [facility] Condition: Fair Follow up Plan Follow up with: Jeff Singh DO [Staff Physician] - Enter time for follow up Prescriptions/Medication Reconciliation: Continued triamcinolone acetonide 0.1 % ointment 0.1 applic topical BIDP PRN (Reason: Rash) docusate sodium 100 mg capsule 100 mg PO DAILY Patient Comments: TAKE 1 CAPSULE BY MOUTH ONCE DAILY aspirin 81 mg tablet,delayed release (DR/EC) 81 mg PO DAILY Patient Comments: TAKE 1 TABLET BY MOUTH ONCE DAILY potassium chloride 20 mEq tablet,ER particles/crystals 20 meq PO DAILY Patient Comments: TAKE ONE TABLET BY MOUTH ONCE DAILY furosemide 40 mg tablet 20 mg PO DAILY 30 Days Qty: 15 0RF albuterol sulfate 2.5 mg /3 mL (0.083 %) solution for nebulization 2.5 mg inhalation Q6HP PRN (Reason: Wheezing) 30 Days Qty: 180 0RF isosorbide mononitrate 30 mg tablet extended release 24 hr 30 mg PO BID 30 Days Qty: 60 0RF lovastatin 40 mg tablet 40 mg PO HS 30 Days Qty: 30 0RF fexofenadine 180 mg tablet 180 mg PO DAILY 30 Days Qty: 30 0RF omeprazole 40 mg capsule,delayed release(DR/EC) 40 mg PO DAILY 30 Days Qty: 30 0RF montelukast 10 mg tablet 10 mg PO HS 30 Days Qty: 30 0RF levofloxacin 500 mg tablet 500 mg PO DAILY 3 Days Qty: 3 0RF Rx Instructions: started on 02/23 for 7 days escitalopram oxalate 20 mg tablet 20 mg PO DAILY 30 Days Qty: 30 0RF metoprolol tartrate 25 mg tablet 12.5 mg PO BID 30 Days Qty: 30 0RF Changed acetaminophen 500 mg tablet 1,000 mg PO Q6HP PRN (Reason: fever or pain) 30 Days Qty: 120 0RF Problem Reconciliation Problems Reviewed?: Yes Patient Discharge Instructions ACTIVITY: Continue current activity DIET: continue same diet Patient Instructions: Acute Kidney Injury, How to Prevent Falls Print Language: Azeri Providers Primary Care Provider: Petar Segal Admit Provider: Clement Sanchez Attending Provider: Clement Sanchez
== END 2024-03-01 16:00 ==
LOC: ER 02-28 01:42 → 2ND 02-28 03:07
PROVIDERS: Nurse Practitioner; Admitting Provider Internal Medicine Adolescent Medicine; Emergency Provider Emergency Medicine; PCP Family Medicine; Visit Provider Internal Medicine Adolescent Medicine
DX: N17.9 Acute kidney failure, unspecified; S22.32XA Fracture of one rib, left side, initial encounter for closed fracture; D72.819 Decreased white blood cell count, unspecified; S52.501D Unspecified fracture of the lower end of right radius, subsequent encounter for closed fracture with routine healing; S52.601D Unspecified fracture of lower end of right ulna, subsequent encounter for closed fracture with routine healing; M87.052 Idiopathic aseptic necrosis of left femur; R29.6 Repeated falls; Z60.2 Problems related to living alone; Z73.89 Other problems related to life management difficulty; W19.XXXA Unspecified fall, initial encounter; Z91.81 History of falling; E87.6 Hypokalemia; D64.89 Other specified anemias; Z66 Do not resuscitate
CPT/HCPCS: 36415; 70450; 72125; 72128; 72131; 72192; 80053; 80320; 83690; 83735; 85025; 92610; 94640; 97116; 97161; 97165; 97530; 99285; G0378; G0480; J1650; J7620

== ENCOUNTER 2024-03-11 13:12 | Outpatient (CLI) | payer MEDICARE, SELFPAY ==
--- NOTE | 2024-03-11 13:20 | XR_ITS ---
FINAL REPORT CLINICAL HISTORY: right wrist fx FINDINGS: RIGHT WRIST Three views demonstrate severely comminuted fractures of the distal radius and ulna. Radial fracture extends to the radiocarpal joint. There is a separate ulnar fracture of the ulnar styloid process. Bones are osteopenic. Detail is limited due to fiberglass splint. IMPRESSION: Severely comminuted fractures of the distal radius and ulna. Reviewed, Interpreted and Dictated by Pablito Chris MD Transcribed by Marcy Ramirez Authenticated and [facility]
== END 2024-03-11 23:59 | disposition home or self-care (01) ==
LOC: RAD 13:15
PROVIDERS: PCP Family Medicine; Visit Provider Physician Assistant
DX: S52.591A Other fractures of lower end of right radius, initial encounter for closed fracture (principal); S52.691A Other fracture of lower end of right ulna, initial encounter for closed fracture
CPT/HCPCS: 73110

== ENCOUNTER 2024-04-01 12:21 | Outpatient (CLI) | payer MEDICARE, SELFPAY ==
--- NOTE | 2024-04-01 12:24 | XR_ITS ---
FINAL REPORT CLINICAL HISTORY: fx follow up FINDINGS: RIGHT WRIST Three views demonstrate comminuted fractures of the distal radius and ulna. Distal ulnar fracture has mild lateral angulation and positive ulnar variance. Bridging callus formations are seen of the fractures. There is an overlying cast present. IMPRESSION: Healing fractures of the distal radius and ulna. Reviewed, Interpreted and Dictated by Geovanny Wolf MD Transcribed by Marcy Ramirez Authenticated and [facility]
== END 2024-04-01 23:59 | disposition home or self-care (01) ==
PROVIDERS: PCP Physician Assistant Surgical; Visit Provider Physician Assistant Surgical
DX: M25.531 Pain in right wrist (principal); S52.501A Unspecified fracture of the lower end of right radius, initial encounter for closed fracture; S52.601A Unspecified fracture of lower end of right ulna, initial encounter for closed fracture
CPT/HCPCS: 73110

== ENCOUNTER 2024-05-04 11:47 | Outpatient (CLI) | payer MEDICARE, SELFPAY ==
--- NOTE | 2024-05-04 11:52 | XR_ITS ---
FINAL REPORT CLINICAL HISTORY: fx f/u COMPARISON: 04/01/2024 FINDINGS: RIGHT WRIST Three views of the right wrist were obtained. The previously noted overlying cast has been removed. There is redemonstration of the comminuted mildly displaced fractures of the distal radius and ulna. There has been progressive bridging callus formation. The fracture fragments are unchanged in location. 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 IMPRESSION: Progressive healing as compared to the previous exam. Reviewed, Interpreted and Dictated by Geovanny Wolf MD Transcribed by Stephani Murry Authenticated and [facility]
== END 2024-05-04 23:59 | disposition home or self-care (01) ==
LOC: RAD 11:48
PROVIDERS: PCP Family Medicine; Visit Provider Physician Assistant Surgical
DX: S52.501A Unspecified fracture of the lower end of right radius, initial encounter for closed fracture (principal); S52.601A Unspecified fracture of lower end of right ulna, initial encounter for closed fracture
CPT/HCPCS: 73110